=== PATIENT | male | born 1950 | race Caucasian/White ===

== ENCOUNTER 2020-10-28 09:50 | Inpatient (IN) | payer MEDICARE, MEDICAID, SELFPAY ==
[2020-10-28] VITALS (44 sets, daily range): BP systolic 88–195; BP diastolic 35–99; PULSE 72–169; RESP 12–42; TEMP 36.8; O2SAT 82–100; BMI 23.6
--- NOTE | 2020-10-28 10:09 | XRR_ITS ---
PROCEDURE INFORMATION: Exam: XR Chest, 1 View Exam date and time: 10/28/2020 10:38 AM Age: 70 years old Clinical indication: Cough and shortness of breath; Additional info: Cough/sob TECHNIQUE: Imaging protocol: XR of the chest Views: 1 view. COMPARISON: No relevant prior studies available. FINDINGS: Lungs: There is dense consolidation of the right upper lobe which is consistent with pneumonia. There is also infiltration extending into the right infrahilar region. The left lung is clear. Pleural space: Unremarkable. No pleural effusion. No pneumothorax. Heart/Mediastinum: Unremarkable. No cardiomegaly. Bones/joints: Unremarkable. XR/XR chest 1V portable [id number] IMPRESSION: Dense right upper lobe consolidation consistent with pneumonia. Follow-up chest radiographs are advised to make sure that this clears and that there is no other underlying pathology.
--- NOTE | 2020-10-28 10:11 | ECG_ITS ---
[facility] Test Date: 2020-10-28 Pat Name: Juan Hess Department: Room: Gender: Male Customer Strategy Manager: : 1950 Requested By: Sobeida Jensen Order Number: [id number] Fabiana MD: Nathanael Park M.D. Measurements Intervals [place] Rate: 148 P: NE: QRS: 55 QRSD: 89 T: 28 QT: 232 QTc: 365 Interpretive Statements ATRIAL FIBRILLATION WITH RAPID VENTRICULAR RESPONSE WITH ABERRANT CONDUCTION OR VENTRICULAR PREMATURE COMPLEXES POSSIBLE RIGHT VENTRICULAR CONDUCTION DELAY [RSR (QR) IN V1/V2] Compared to ECG 05/25/2017 08:16:09 Ventricular premature complex(es) now present Aberrant conduction of supraventricular beat(s) now present Sinus bradycardia no longer present Incomplete right bundle-branch block no longer present Electronically Signed On 10-28-2020 17:46:58 STOGIE PACKER by Nathanael Park M.D. [id number]
--- NOTE | 2020-10-28 10:12 | W.ED.SOB ---
Documented by User: ANNIKA Field 10/28/20 13:32 HPI - SOB/Dyspnea General: Chief Complaint: Shortness of Breath/Dyspnea Stated Complaint: SOB Time Seen by Provider: 10/28/20 09:52 Source: patient Mode of arrival: EMS Limitations: no limitations History of Present Illness: HPI Narrative: Patient is a nice 70-year-old gentleman who presents to ED today via EMS for complaint of shortness of breath. Patient tells me he began feeling ill approximately 12 days ago. He feels he most likely has COVID. He tells me today he feels like his shortness of breath is much worse than it had been previously. EMS reports when they arrived at patient's home he was satting in the 70s on room air. They administered a breathing treatment and placed patient on 6L O2. Patient tells me he normally does not wear oxygen. He has no previous cardiac or pulmonary history per patient report. EMS also noted atrial fibrillation with RVR on his EKG. Patient tells me he has no history of this. [facility] ED PFSH: Medical History (Updated 10/28/20 @ 12:03 by Sherman Foster MD) History of colon cancer Postherpetic neuralgia Surgical History History of colon resection Social History Smoking and tobacco status: never smoked Second hand smoke exposure: No Smoking risk assessment/counseling performed?: No Alcohol intake: never Desire information about alcohol rehabilitation?: No Counseling given: No Course Vital Signs: Vital signs: Vital Signs Temperature 98.3 F 10/28/20 09:50 Pulse Rate 140 H 10/28/20 13:00 Respiratory Rate 18 10/28/20 13:00 Blood Pressure 102/81 10/28/20 13:00 Pulse Oximetry 93 10/28/20 13:00 MDM - SOB/Dyspnea MDM Narrative: Medical decision making narrative: I spoke to Dr. Foster after evaluating patient and he will be assuming his care as he will most likely be admitted. Lab Data: Labs: Lab Results 10/28/20 10/28/20 10/28/20 Range/Units 08:52 08:52 08:52 WBC 26.7 H (4.0-10.0) 10^3/ uL RBC 4.87 (4.1-5.3) 10^6/u L Hgb 14.9 (11.7-16.6) g/dL Hct 43.9 (42.0-52.0) % MCV 90.1 (80-94) fL MCH 30.6 (28.0-34.0) pg MCHC 33.9 (30.0-36.0) g/dL RDW 13.1 (12.1-15.1) % Plt Count 342 (130-400) 10^3/c mm MPV 10.7 H (7.4-10.4) fL Neut % (Auto) 93.4 % Lymph % (Auto) 2.3 % Ector % (Auto) 2.1 % Eos % (Auto) 0.1 % Baso % (Auto) 0.1 % Neut # (Auto) 24.93 H (1.8-7.7) 10^3/u L Lymph # (Auto) 0.6 L (0.8-4.8) 10^3/u L Ector # (Auto) 0.6 (0.2-0.9) 10^3/u L Eos # (Auto) 0.0 (0.0-0.8) 10^3/u L Baso # (Auto) 0.0 (0.0-0.1) 10^3/u L Nucleated RBC % (a uto) 0 % Nucleated RBCs # 0.0 /100WBC Fibrinogen 1528 H (174-498) mg/dL D-Dimer 5.55 H (0-0.59) ug/mIFE U Specimen Type Sample Site ABG pH (7.35-7.45) ABG pCO2 (35-45) mmHg ABG pO2 (80.0-100.0) mmH g ABG HCO3 (22-26) mmol/L ABG Base Excess (-2.0-2.0) mmol/ L Aamir Test Hematocrit (42-52) % O2 Delivery Device O2 Liters/Min % FiO2 % Clay Hoister ID Sodium 131 L (136-145) mmol/L Potassium 3.9 (3.5-5.1) mmol/L Chloride 90 L (98-107) mmol/L Carbon Dioxide 22 (22-29) mmol/L Anion Gap 22.9 H (5-19) BUN 32 H (8-23) mg/dL Creatinine 1.9 H (0.7-1.2) mg/dL GFR Calculation 35.4 L (90-130) mL/min Glucose 118 H (65-115) mg/dL Calculated Osmolal ity 280 L (285-295) mOsm/k g Lactic Acid (0.5-2.2) mmol/L Calcium 7.5 L (8.5-10.5) mg/dL Total Bilirubin 1.5 H (0.15-1.2) mg/dL AST 89 H (0-40) U/L ALT 52 H (0-41) U/L Alkaline Phosphata se 133 H (40-130) IU/L Creatine Kinase 92 (39-308) U/L Troponin T Baselin e (0-15) ng/L Troponin T 120 Min lower elwha (0-15) ng/L Delta Troponin T (0-10) ABS# C-Reactive Protein 416.3 H (0.0-4.9) mg/L NT-Pro-B Natriuret Pep 7359 H (0-125) pg/mL Total Protein 6.3 L (6.6-8.7) g/dL Albumin 3.1 L (3.5-5.2) g/dL Globulin 3.2 (1.3-4.6) g/dL Procalcitonin 30.09 H (0-0.5) ng/mL Influenza Type A A g (Negative) Influenza Type B A g (Negative) SARS-CoV-2 Ag (Rap id) (Negative) 10/28/20 10/28/20 10/28/20 Range/Units 08:52 10:28 10:28 WBC (4.0-10.0) 10^3/ uL RBC (4.1-5.3) 10^6/u L Hgb (11.7-16.6) g/dL Hct (42.0-52.0) % MCV (80-94) fL MCH (28.0-34.0) pg MCHC (30.0-36.0) g/dL RDW (12.1-15.1) % Plt Count (130-400) 10^3/c mm MPV (7.4-10.4) fL Neut % (Auto) % Lymph % (Auto) % Ector % (Auto) % Eos % (Auto) % Baso % (Auto) % Neut # (Auto) (1.8-7.7) 10^3/u L Lymph # (Auto) (0.8-4.8) 10^3/u L Ector # (Auto) (0.2-0.9) 10^3/u L Eos # (Auto) (0.0-0.8) 10^3/u L Baso # (Auto) (0.0-0.1) 10^3/u L Nucleated RBC % (a uto) % Nucleated RBCs # /100WBC Fibrinogen (174-498) mg/dL D-Dimer (0-0.59) ug/mIFE U Specimen Type Sample Site ABG pH (7.35-7.45) ABG pCO2 (35-45) mmHg ABG pO2 (80.0-100.0) mmH g ABG HCO3 (22-26) mmol/L ABG Base Excess (-2.0-2.0) mmol/ L Aamir Test Hematocrit (42-52) % O2 Delivery Device O2 Liters/Min % FiO2 % Clay Hoister ID Sodium (136-145) mmol/L Potassium (3.5-5.1) mmol/L Chloride (98-107) mmol/L Carbon Dioxide (22-29) mmol/L Anion Gap (5-19) BUN (8-23) mg/dL Creatinine (0.7-1.2) mg/dL GFR Calculation (90-130) mL/min Glucose (65-115) mg/dL Calculated Osmolal ity (285-295) mOsm/k g Lactic Acid (0.5-2.2) mmol/L Calcium (8.5-10.5) mg/dL Total Bilirubin (0.15-1.2) mg/dL AST (0-40) U/L ALT (0-41) U/L Alkaline Phosphata se (40-130) IU/L Creatine Kinase (39-308) U/L Troponin T Baselin e 15 (0-15) ng/L Troponin T 120 Min lower [place] (0-15) ng/L Delta Troponin T (0-10) ABS# C-Reactive Protein (0.0-4.9) mg/L NT-Pro-B Natriuret Pep (0-125) pg/mL Total Protein (6.6-8.7) g/dL Albumin (3.5-5.2) g/dL Globulin (1.3-4.6) g/dL Procalcitonin (0-0.5) ng/mL Influenza Type A A g Negative (Negative) Influenza Type B A g Negative (Negative) SARS-CoV-2 Ag (Rap id) Negative (Negative) 10/28/20 10/28/20 10/28/20 Range/Units 11:05 11:05 13:19 WBC (4.0-10.0) 10^3/ uL RBC (4.1-5.3) 10^6/u L Hgb (11.7-16.6) g/dL Hct (42.0-52.0) % MCV (80-94) fL MCH (28.0-34.0) pg MCHC (30.0-36.0) g/dL RDW (12.1-15.1) % Plt Count (130-400) 10^3/c mm MPV (7.4-10.4) fL Neut % (Auto) % Lymph % (Auto) % Ector % (Auto) % Eos % (Auto) % Baso % (Auto) % Neut # (Auto) (1.8-7.7) 10^3/u L Lymph # (Auto) (0.8-4.8) 10^3/u L Ector # (Auto) (0.2-0.9) 10^3/u L Eos # (Auto) (0.0-0.8) 10^3/u L Baso # (Auto) (0.0-0.1) 10^3/u L Nucleated RBC % (a uto) % Nucleated RBCs # /100WBC Fibrinogen (174-498) mg/dL D-Dimer (0-0.59) ug/mIFE U Specimen Type Arterial Sample Site Radial, left ABG pH 7.50 H (7.35-7.45) ABG pCO2 26.0 L (35-45) mmHg ABG pO2 55.4 L (80.0-100.0) mmH g ABG HCO3 20.1 L (22-26) mmol/L ABG Base Excess -1.7 (-2.0-2.0) mmol/ L Aamir Test Pos Hematocrit 40.5 L (42-52) % O2 Delivery Device Nc O2 Liters/Min 2.0 % FiO2 28.0 % Clay Hoister ID Cak Sodium (136-145) mmol/L Potassium (3.5-5.1) mmol/L Chloride (98-107) mmol/L Carbon Dioxide (22-29) mmol/L Anion Gap (5-19) BUN (8-23) mg/dL Creatinine (0.7-1.2) mg/dL GFR Calculation (90-130) mL/min Glucose (65-115) mg/dL Calculated Osmolal ity (285-295) mOsm/k g Lactic Acid 2.4 H (0.5-2.2) mmol/L Calcium (8.5-10.5) mg/dL Total Bilirubin (0.15-1.2) mg/dL AST (0-40) U/L ALT (0-41) U/L Alkaline Phosphata se (40-130) IU/L Creatine Kinase (39-308) U/L Troponin T Baselin e (0-15) ng/L Troponin T 120 Min lower [place]wh[place] 13.29 (0-15) ng/L Delta Troponin T -1.71 L (0-10) ABS# C-Reactive Protein (0.0-4.9) mg/L NT-Pro-B Natriuret Pep (0-125) pg/mL Total Protein (6.6-8.7) g/dL Albumin (3.5-5.2) g/dL Globulin (1.3-4.6) g/dL Procalcitonin (0-0.5) ng/mL Influenza Type A A g (Negative) Influenza Type B A g (Negative) SARS-CoV-2 Ag (Rap id) (Negative) Discharge Plan Discharge Patient Disposition: Admitted As Inpatient Clinical Impression: Community acquired pneumonia, Atrial fibrillation with rapid ventricular response, Acute renal failure (ARF) Condition: Serious Coding Level of Care Code ED Automotive Engineering Technician for g Fwd Documented by User: Sherman Foster MD 10/28/20 13:44 HPI - SOB/Dyspnea General: Chief Complaint: Shortness of Breath/Dyspnea Stated Complaint: SOB Time Seen by Provider: 10/28/20 09:52 PFSH ED PFSH: Medical History (Updated 10/28/20 @ 12:03 by Sherman Foster MD) History of colon cancer Postherpetic neuralgia Surgical History History of colon resection Social History Smoking and tobacco status: never smoked Second hand smoke exposure: No Smoking risk assessment/counseling performed?: No Alcohol intake: never Desire information about alcohol rehabilitation?: No Counseling given: No Course Vital Signs: Vital signs: Vital Signs Temperature 98.3 F 10/28/20 09:50 Pulse Rate 140 H 10/28/20 13:00 Respiratory Rate 18 10/28/20 13:00 Blood Pressure 102/81 10/28/20 13:00 Pulse Oximetry 93 10/28/20 13:00 MDM - SOB/Dyspnea Lab Data: Labs: Lab Results 10/28/20 10/28/20 10/28/20 Range/Units 08:52 08:52 08:52 WBC 26.7 H (4.0-10.0) 10^3/ uL RBC 4.87 (4.1-5.3) 10^6/u L Hgb 14.9 (11.7-16.6) g/dL Hct 43.9 (42.0-52.0) % MCV 90.1 (80-94) fL MCH 30.6 (28.0-34.0) pg MCHC 33.9 (30.0-36.0) g/dL RDW 13.1 (12.1-15.1) % Plt Count 342 (130-400) 10^3/c mm MPV 10.7 H (7.4-10.4) fL Neut % (Auto) 93.4 % Lymph % (Auto) 2.3 % Ector % (Auto) 2.1 % Eos % (Auto) 0.1 % Baso % (Auto) 0.1 % Neut # (Auto) 24.93 H (1.8-7.7) 10^3/u L Lymph # (Auto) 0.6 L (0.8-4.8) 10^3/u L Ector # (Auto) 0.6 (0.2-0.9) 10^3/u L Eos # (Auto) 0.0 (0.0-0.8) 10^3/u L Baso # (Auto) 0.0 (0.0-0.1) 10^3/u L Nucleated RBC % (a uto) 0 % Nucleated RBCs # 0.0 /100WBC Fibrinogen 1528 H (174-498) mg/dL D-Dimer 5.55 H (0-0.59) ug/mIFE U Specimen Type Sample Site ABG pH (7.35-7.45) ABG pCO2 (35-45) mmHg ABG pO2 (80.0-100.0) mmH g ABG HCO3 (22-26) mmol/L ABG Base Excess (-2.0-2.0) mmol/ L Aamir Test Hematocrit (42-52) % O2 Delivery Device O2 Liters/Min % FiO2 % Clay Hoister ID Sodium 131 L (136-145) mmol/L Potassium 3.9 (3.5-5.1) mmol/L Chloride 90 L (98-107) mmol/L Carbon Dioxide 22 (22-29) mmol/L Anion Gap 22.9 H (5-19) BUN 32 H (8-23) mg/dL Creatinine 1.9 H (0.7-1.2) mg/dL GFR Calculation 35.4 L (90-130) mL/min Glucose 118 H (65-115) mg/dL Calculated Osmolal ity 280 L (285-295) mOsm/k g Lactic Acid (0.5-2.2) mmol/L Calcium 7.5 L (8.5-10.5) mg/dL Total Bilirubin 1.5 H (0.15-1.2) mg/dL AST 89 H (0-40) U/L ALT 52 H (0-41) U/L Alkaline Phosphata se 133 H (40-130) IU/L Creatine Kinase 92 (39-308) U/L Troponin T Baselin e (0-15) ng/L Troponin T 120 Min lower [place] (0-15) ng/L Delta Troponin T (0-10) ABS# C-Reactive Protein 416.3 H (0.0-4.9) mg/L NT-Pro-B Natriuret Pep 7359 H (0-125) pg/mL Total Protein 6.3 L (6.6-8.7) g/dL Albumin 3.1 L (3.5-5.2) g/dL Globulin 3.2 (1.3-4.6) g/dL Procalcitonin 30.09 H (0-0.5) ng/mL Influenza Type A A g (Negative) Influenza Type B A g (Negative) SARS-CoV-2 Ag (Rap id) (Negative) 10/28/20 10/28/20 10/28/20 Range/Units 08:52 10:28 10:28 WBC (4.0-10.0) 10^3/ uL RBC (4.1-5.3) 10^6/u L Hgb (11.7-16.6) g/dL Hct (42.0-52.0) % MCV (80-94) fL MCH (28.0-34.0) pg MCHC (30.0-36.0) g/dL RDW (12.1-15.1) % Plt Count (130-400) 10^3/c mm MPV (7.4-10.4) fL Neut % (Auto) % Lymph % (Auto) % Ector % (Auto) % Eos % (Auto) % Baso % (Auto) % Neut # (Auto) (1.8-7.7) 10^3/u L Lymph # (Auto) (0.8-4.8) 10^3/u L Ector # (Auto) (0.2-0.9) 10^3/u L Eos # (Auto) (0.0-0.8) 10^3/u L Baso # (Auto) (0.0-0.1) 10^3/u L Nucleated RBC % (a uto) % Nucleated RBCs # /100WBC Fibrinogen (174-498) mg/dL D-Dimer (0-0.59) ug/mIFE U Specimen Type Sample Site ABG pH (7.35-7.45) ABG pCO2 (35-45) mmHg ABG pO2 (80.0-100.0) mmH g ABG HCO3 (22-26) mmol/L ABG Base Excess (-2.0-2.0) mmol/ L Aamir Test Hematocrit (42-52) % O2 Delivery Device O2 Liters/Min % FiO2 % Clay Hoister ID Sodium (136-145) mmol/L Potassium (3.5-5.1) mmol/L Chloride (98-107) mmol/L Carbon Dioxide (22-29) mmol/L Anion Gap (5-19) BUN (8-23) mg/dL Creatinine (0.7-1.2) mg/dL GFR Calculation (90-130) mL/min Glucose (65-115) mg/dL Calculated Osmolal ity (285-295) mOsm/k g Lactic Acid (0.5-2.2) mmol/L Calcium (8.5-10.5) mg/dL Total Bilirubin (0.15-1.2) mg/dL AST (0-40) U/L ALT (0-41) U/L Alkaline Phosphata se (40-130) IU/L Creatine Kinase (39-308) U/L Troponin T Baselin e 15 (0-15) ng/L Troponin T 120 Min lower [place] (0-15) ng/L Delta Troponin T (0-10) ABS# C-Reactive Protein (0.0-4.9) mg/L NT-Pro-B Natriuret Pep (0-125) pg/mL Total Protein (6.6-8.7) g/dL Albumin (3.5-5.2) g/dL Globulin (1.3-4.6) g/dL Procalcitonin (0-0.5) ng/mL Influenza Type A A g Negative (Negative) Influenza Type B A g Negative (Negative) SARS-CoV-2 Ag (Rap id) Negative (Negative) 10/28/20 10/28/20 10/28/20 Range/Units 11:05 11:05 13:19 WBC (4.0-10.0) 10^3/ uL RBC (4.1-5.3) 10^6/u L Hgb (11.7-16.6) g/dL Hct (42.0-52.0) % MCV (80-94) fL MCH (28.0-34.0) pg MCHC (30.0-36.0) g/dL RDW (12.1-15.1) % Plt Count (130-400) 10^3/c mm MPV (7.4-10.4) fL Neut % (Auto) % Lymph % (Auto) % Ector % (Auto) % Eos % (Auto) % Baso % (Auto) % Neut # (Auto) (1.8-7.7) 10^3/u L Lymph # (Auto) (0.8-4.8) 10^3/u L Ector # (Auto) (0.2-0.9) 10^3/u L Eos # (Auto) (0.0-0.8) 10^3/u L Baso # (Auto) (0.0-0.1) 10^3/u L Nucleated RBC % (a uto) % Nucleated RBCs # /100WBC Fibrinogen (174-498) mg/dL D-Dimer (0-0.59) ug/mIFE U Specimen Type Arterial Sample Site Radial, left ABG pH 7.50 H (7.35-7.45) ABG pCO2 26.0 L (35-45) mmHg ABG pO2 55.4 L (80.0-100.0) mmH g ABG HCO3 20.1 L (22-26) mmol/L ABG Base Excess -1.7 (-2.0-2.0) mmol/ L Aamir Test Pos Hematocrit 40.5 L (42-52) % O2 Delivery Device Nc O2 Liters/Min 2.0 % FiO2 28.0 % Clay Hoister ID Cak Sodium (136-145) mmol/L Potassium (3.5-5.1) mmol/L Chloride (98-107) mmol/L Carbon Dioxide (22-29) mmol/L Anion Gap (5-19) BUN (8-23) mg/dL Creatinine (0.7-1.2) mg/dL GFR Calculation (90-130) mL/min Glucose (65-115) mg/dL Calculated Osmolal ity (285-295) mOsm/k g Lactic Acid 2.4 H (0.5-2.2) mmol/L Calcium (8.5-10.5) mg/dL Total Bilirubin (0.15-1.2) mg/dL AST (0-40) U/L ALT (0-41) U/L Alkaline Phosphata se (40-130) IU/L Creatine Kinase (39-308) U/L Troponin T Baselin e (0-15) ng/L Troponin T 120 Min lower [place] 13.29 (0-15) ng/L Delta Troponin T -1.71 L (0-10) ABS# C-Reactive Protein (0.0-4.9) mg/L NT-Pro-B Natriuret Pep (0-125) pg/mL Total Protein (6.6-8.7) g/dL Albumin (3.5-5.2) g/dL Globulin (1.3-4.6) g/dL Procalcitonin (0-0.5) ng/mL Influenza Type A A g (Negative) Influenza Type B A g (Negative) SARS-CoV-2 Ag (Rap id) (Negative) Discharge Plan Discharge Patient Disposition: Admitted As Inpatient Clinical Impression: Community acquired pneumonia, Atrial fibrillation with rapid ventricular response, Acute renal failure (ARF) Condition: Serious Coding Level of Care Code ED Automotive Engineering Technician for Codi Valente
[2020-10-28 10:29] LABS: Basophils % 0.1 %; Eosinophils % 0.1 %; Hematocrit 43.9 % (42.0-52.0); Hemoglobin 14.9 g/dL (11.7-16.6); Lymphocytes # 0.6 10^3/uL (0.8-4.8); Lymphocytes % 2.3 %; Mean Corpuscular HGB Conc 33.9 g/dL (30.0-36.0); Mean Corpuscular Hemoglobin 30.6 pg (28.0-34.0); Mean Corpuscular Volume 90.1 fL (80-94); Mean Platelet Volume 10.7 fL (7.4-10.4); Monocytes # 0.6 10^3/uL (0.2-0.9); Monocytes % 2.1 %; Neutrophils # 24.93 10^3/uL (1.8-7.7); Neutrophils % 93.4 %; Nucleated Red Blood Cells % 0 %; Platelet Count 342 10^3/cmm (130-400); Red Blood Count 4.87 10^6/uL (4.1-5.3); Red Cell Distribution Width 13.1 % (12.1-15.1); White Blood Count 26.7 10^3/uL (4.0-10.0)
[2020-10-28 10:40] LABS: Fibrinogen 1528 mg/dL (174-498)
[2020-10-28 10:41] LABS: Troponin(5th) Baseline 15 ng/L (0-15)
[2020-10-28 10:44] LABS: D Dimer 5.55 ug/mIFEU (0-0.59)
[2020-10-28] MEDS: sodium chloride 0.9% 1,000 ML 999 ML IV (10:47)
[2020-10-28 10:52] LABS: NT Pro B Type Natriuretic Pept 7359 pg/mL (0-125); Procalcitonin 30.09 ng/mL (0-0.5)
[2020-10-28 11:05] LABS: Alanine Aminotransferase 52 U/L (0-41); Albumin Level 3.1 g/dL (3.5-5.2); Alkaline Phosphatase 133 IU/L (40-130); Anion Gap 22.9 (5-19); Aspartate Amino Transferase 89 U/L (0-40); Blood Urea Nitrogen 32 mg/dL (8-23); Calcium 7.5 mg/dL (8.5-10.5); Carbon Dioxide 22 mmol/L (22-29); Chloride 90 mmol/L (98-107); Creatine Phosphokinase 92 U/L (39-308); Globulin 3.2 g/dL (1.3-4.6); Glomerular Filtration Rate 35.4 mL/min (90-130); Glucose 118 mg/dL (65-115); Osmolality Calculated 280 mOsm/kg (285-295); Potassium 3.9 mmol/L (3.5-5.1); Sodium 131 mmol/L (136-145); Total Bilirubin 1.5 mg/dL (0.15-1.2); Total Protein 6.3 g/dL (6.6-8.7)
[2020-10-28 11:19] LABS: C Reactive Protein 416.3 mg/L (0.0-4.9)
[2020-10-28] MEDS: levofloxacin-dextrose 5 % 750 MG/150 ML PREMIX 100 MG IV (11:50)
[2020-10-28 11:54] LABS: Lactic Sepsis W/Reflex 2.4 mmol/L (0.5-2.2)
[2020-10-28 11:55] LABS: Troponin 5 2HR 13.29 ng/L (0-15)
[2020-10-28 11:57] LABS: Influenza A by IFA Negative (Negative); Influenza B by IFA Negative (Negative); SARS Covid-2 Antigen Negative (Negative)
--- NOTE | 2020-10-28 11:57 | ED_ITS ---
HPI - SOB/Dyspnea General: Chief Complaint: Shortness of Breath/Dyspnea Stated Complaint: SOB Time Seen by Provider: 10/28/20 09:52 Source: patient Mode of arrival: EMS Limitations: no limitations History of Present Illness: HPI Narrative: Patient with shortness of breath and palpitations and intermittent chest pain x12 days. Associated symptoms: Reports chest pain, fever(s) and palpitations; Deny abdominal pain, nausea or vomiting Review of Systems Const: Reports: fever(s) ENMT: Reports: throat pain Card: Reports: chest pain, palpitations and irregular heart rhythm Resp: Reports: dyspnea and productive cough GI: Denies: abdominal pain, nausea, vomiting or diarrhea : Denies: flank pain Skin/Breast: Denies: rash PFSH ED PFSH: Medical History (Updated 10/28/20 @ 12:03 by Sherman Foster MD) History of colon cancer Postherpetic neuralgia Surgical History History of colon resection Social History Smoking and tobacco status: never smoked Second hand smoke exposure: No Smoking risk assessment/counseling performed?: No Alcohol intake: never Desire information about alcohol rehabilitation?: No Counseling given: No Physical Exam Const: COMMON NORMALS: patient oriented x3; apparent distress and negative for healthy appearing EXAM LIMITATIONS: no altered mental status GENERAL APPEARANCE: cooperative HENMT: COMMON NORMALS: normocephalic HEAD & SCALP: normal to inspection and normocephalic FACE & SINUS: normal facial exam Eye: COMMON NORMALS: Equal, round and reactive pupils present and EOMs intact bilaterally PUPIL: Yes Equal, round and reactive pupils present Neck/C-Spine: COMMON NORMALS: full ROM, no lymphadenopathy and no meningeal signs Chest: COMMONS NORMALS: normal inspection of the chest Resp: EFFORT & INSPECTION: Yes tachypneic, Yes labored and Yes uses accessory muscles AUSCULTATION: crackles Cardio: RATE: tachycardic RHYTHM: abnormal rhythm Neuro: COMMON NORMALS: patient oriented x3, CN's II-XII intact bilaterally, m oves all extremities, no focal motor deficits and no sensory deficits noted MENINGEAL SIGNS: Yes no meningeal signs Course Vital Signs: Vital signs: Vital Signs Temperature 98.3 F 10/28/20 09:50 Pulse Rate 136 H 10/28/20 11:00 Respiratory Rate 42 H 10/28/20 11:00 Blood Pressure 103/72 10/28/20 11:00 Pulse Oximetry 90 10/28/20 11:00 MDM - SOB/Dyspnea MDM Narrative: Medical decision making narrative: Patient has new onset A. fib with RVR with a ventricular rate of 140s. Started on Cardizem. EKG discussed with Dr. Park. Chest x-ray shows a right upper lobe infiltrate. Started on Levaquin. Seems to be more consistent with a bacterial pneumonia. We will also check Covid. Patient with acute renal insufficiency so unable to do CTA of the chest despite elevated D-dimer so we will start patient on heparin drip until able to rule out PE. Negative troponin. Discussed with who accepted patient Lab Data: Labs: Lab Results 10/28/20 10/28/20 10/28/20 Range/Units 08:52 08:52 08:52 WBC 26.7 H (4.0-10.0) 10^3/ uL RBC 4.87 (4.1-5.3) 10^6/u L Hgb 14.9 (11.7-16.6) g/dL Hct 43.9 (42.0-52.0) % MCV 90.1 (80-94) fL MCH 30.6 (28.0-34.0) pg MCHC 33.9 (30.0-36.0) g/dL RDW 13.1 (12.1-15.1) % Plt Count 342 (130-400) 10^3/c mm MPV 10.7 H (7.4-10.4) fL Neut % (Auto) 93.4 % Lymph % (Auto) 2.3 % [place] % (Auto) 2.1 % Eos % (Auto) 0.1 % Baso % (Auto) 0.1 % Neut # (Auto) 24.93 H (1.8-7.7) 10^3/u L Lymph # (Auto) 0.6 L (0.8-4.8) 10^3/u L [place] # (Auto) 0.6 (0.2-0.9) 10^3/u L Eos # (Auto) 0.0 (0.0-0.8) 10^3/u L Baso # (Auto) 0.0 (0.0-0.1) 10^3/u L Nucleated RBC % (a uto) 0 % Nucleated RBCs # 0.0 /100WBC Fibrinogen 1528 H (174-498) mg/dL D-Dimer 5.55 H (0-0.59) ug/mIFE U Sodium 131 L (136-145) mmol/L Potassium 3.9 (3.5-5.1) mmol/L Chloride 90 L (98-107) mmol/L Carbon Dioxide 22 (22-29) mmol/L Anion Gap 22.9 H (5-19) BUN 32 H (8-23) mg/dL Creatinine 1.9 H (0.7-1.2) mg/dL GFR Calculation 35.4 L (90-130) mL/min Glucose 118 H (65-115) mg/dL Calculated Osmolal ity 280 L (285-295) mOsm/k g Lactic Acid (0.5-2.2) mmol/L Calcium 7.5 L (8.5-10.5) mg/dL Total Bilirubin 1.5 H (0.15-1.2) mg/dL AST 89 H (0-40) U/L ALT 52 H (0-41) U/L Alkaline Phosphata se 133 H (40-130) IU/L Creatine Kinase 92 (39-308) U/L Troponin T Baselin e (0-15) ng/L Troponin T 120 Min [place] (0-15) ng/L Delta Troponin T (0-10) ABS# C-Reactive Protein 416.3 H (0.0-4.9) mg/L NT-Pro-B Natriuret Pep 7359 H (0-125) pg/mL Total Protein 6.3 L (6.6-8.7) g/dL Albumin 3.1 L (3.5-5.2) g/dL Globulin 3.2 (1.3-4.6) g/dL Procalcitonin 30.09 H (0-0.5) ng/mL Influenza Type A A g (Negative) Influenza Type B A g (Negative) SARS-CoV-2 Ag (Rap id) (Negative) 10/28/20 10/28/20 10/28/20 Range/Units 08:52 10:28 10:28 WBC (4.0-10.0) 10^3/ uL RBC (4.1-5.3) 10^6/u L Hgb (11.7-16.6) g/dL Hct (42.0-52.0) % MCV (80-94) fL MCH (28.0-34.0) pg MCHC (30.0-36.0) g/dL RDW (12.1-15.1) % Plt Count (130-400) 10^3/c mm MPV (7.4-10.4) fL Neut % (Auto) % Lymph % (Auto) % [place] % (Auto) % Eos % (Auto) % Baso % (Auto) % Neut # (Auto) (1.8-7.7) 10^3/u L Lymph # (Auto) (0.8-4.8) 10^3/u L [place] # (Auto) (0.2-0.9) 10^3/u L Eos # (Auto) (0.0-0.8) 10^3/u L Baso # (Auto) (0.0-0.1) 10^3/u L Nucleated RBC % (a uto) % Nucleated RBCs # /100WBC Fibrinogen (174-498) mg/dL D-Dimer (0-0.59) ug/mIFE U Sodium (136-145) mmol/L Potassium (3.5-5.1) mmol/L Chloride (98-107) mmol/L Carbon Dioxide (22-29) mmol/L Anion Gap (5-19) BUN (8-23) mg/dL Creatinine (0.7-1.2) mg/dL GFR Calculation (90-130) mL/min Glucose (65-115) mg/dL Calculated Osmolal ity (285-295) mOsm/k g Lactic Acid (0.5-2.2) mmol/L Calcium (8.5-10.5) mg/dL Total Bilirubin (0.15-1.2) mg/dL AST (0-40) U/L ALT (0-41) U/L Alkaline Phosphata se (40-130) IU/L Creatine Kinase (39-308) U/L Troponin T Baselin e 15 (0-15) ng/L Troponin T 120 Min [place] (0-15) ng/L Delta Troponin T (0-10) ABS# C-Reactive Protein (0.0-4.9) mg/L NT-Pro-B Natriuret Pep (0-125) pg/mL Total Protein (6.6-8.7) g/dL Albumin (3.5-5.2) g/dL Globulin (1.3-4.6) g/dL Procalcitonin (0-0.5) ng/mL Influenza Type A A g Negative (Negative) Influenza Type B A g Negative (Negative) SARS-CoV-2 Ag (Rap id) Negative (Negative) 10/28/20 10/28/20 Range/Units 11:05 11:05 WBC (4.0-10.0) 10^3/ uL RBC (4.1-5.3) 10^6/u L Hgb (11.7-16.6) g/dL Hct (42.0-52.0) % MCV (80-94) fL MCH (28.0-34.0) pg MCHC (30.0-36.0) g/dL RDW (12.1-15.1) % Plt Count (130-400) 10^3/c mm MPV (7.4-10.4) fL Neut % (Auto) % Lymph % (Auto) % [place] % (Auto) % Eos % (Auto) % Baso % (Auto) % Neut # (Auto) (1.8-7.7) 10^3/u L Lymph # (Auto) (0.8-4.8) 10^3/u L [place] # (Auto) (0.2-0.9) 10^3/u L Eos # (Auto) (0.0-0.8) 10^3/u L Baso # (Auto) (0.0-0.1) 10^3/u L Nucleated RBC % (a uto) % Nucleated RBCs # /100WBC Fibrinogen (174-498) mg/dL D-Dimer (0-0.59) ug/mIFE U Sodium (136-145) mmol/L Potassium (3.5-5.1) mmol/L Chloride (98-107) mmol/L Carbon Dioxide (22-29) mmol/L Anion Gap (5-19) BUN (8-23) mg/dL Creatinine (0.7-1.2) mg/dL GFR Calculation (90-130) mL/min Glucose (65-115) mg/dL Calculated Osmolal ity (285-295) mOsm/k g Lactic Acid 2.4 H (0.5-2.2) mmol/L Calcium (8.5-10.5) mg/dL Total Bilirubin (0.15-1.2) mg/dL AST (0-40) U/L ALT (0-41) U/L Alkaline Phosphata se (40-130) IU/L Creatine Kinase (39-308) U/L Troponin T Baselin e (0-15) ng/L Troponin T 120 Min [place] 13.29 (0-15) ng/L Delta Troponin T -1.71 L (0-10) ABS# C-Reactive Protein (0.0-4.9) mg/L NT-Pro-B Natriuret Pep (0-125) pg/mL Total Protein (6.6-8.7) g/dL Albumin (3.5-5.2) g/dL Globulin (1.3-4.6) g/dL Procalcitonin (0-0.5) ng/mL Influenza Type A A g (Negative) Influenza Type B A g (Negative) SARS-CoV-2 Ag (Rap id) (Negative) Discharge Plan Discharge Patient Disposition: Admitted As Inpatient Clinical Impression: Community acquired pneumonia, Atrial fibrillation with rapid ventricular response, Acute renal failure (ARF) Condition: Serious Coding Level of Care Code ED Director Of Medical Staff Services for [facility] Fwd Exam Comprehensive
[2020-10-28 11:59] LABS: Troponin 5 2HR Delta -1.71 ABS# (0-10)
[2020-10-28] MEDS: heparin drip 25,000 UNIT/500 ML PREMIX 17.4 UNIT IV (12:45)
[2020-10-28 13:02] LABS: Reflex Lactate Order REFLEX LACTIC ORDERD
--- NOTE | 2020-10-28 13:02 | P.HP_ITS ---
Providers/Chief Complaint Primary Care Provider: ALEJANDRINA Lopez Chief Complaint: SOB History of Present Illness Juan Hess is a 70 year old male with no significant PMH came in with C/O worsening fatigue, malaise,weakness,sob with cough,subjective fever, started approximately 2 weeks ago and since then has progressively worsened.He is also giving h/o of dizziness as well as recurrent fall. Upon arrival in the ER he was worked up for above mentioned complain. Pertinent imaging studies and labs : X ray chest : Dense right upper lobe consolidation consistent with pneumonia. C.T Chest without Contrast : There is dense consolidation of the right upper lobe. The bronchi and bronchioles are patent. These findings are consistent with a right upper lobe pneumonia. Left lung is clear. EKG : ATRIAL FIBRILLATION WITH RAPID VENTRICULAR RESPONSE WITH ABERRANT CONDUCTION. Possible Brugada.Will repeat EKG Once H.R is better controlled. Labs : WBC :26T , H/H : 14.9/43, BUN/SCR: 32/1.9 Troponin: Baseline : 15, 2H Tro: 13, Delta 2h: -1.71 , 6h : 10.8 Delta 6h : - 4.19 D-Dimer : 5.55 Lactic Acid : 2.4 , Procal : 30.9 , Pro Bnp: 7359, ABG: Ph: 7.50 ,PCO2: 26, PO2: 55, FIO2: 28 % ECA Medications : Started on Cardizem Drip as well as Heparin drip.Received 1 dose of levofloxacin ; Review of Systems Card: Denies: palpitations GI: Denies: abdominal pain, nausea, vomiting, diarrhea or constipation : Denies: flank pain or difficulty urinating Musc: Denies: back pain, extremity pain or extremity swelling Medications/Allergies Home Medications Medication Instructions Recorded Confirmed Last Taken Type multivitamin 1 tab PO DAILY PRN 10/28/20 10/28/20 Unknown History Allergies Allergy/AdvReac Type Severity Reaction Status Date / Time No Known Allergies Allergy Verified 10/28/20 11:59 PFSH Acute PFSH: Medical History (Updated 10/28/20 @ 23:03 by Ti Burch MD) History of colon cancer Postherpetic neuralgia Surgical History History of colon resection Social History Smoking and tobacco status: never smoked Second hand smoke exposure: No Smoking risk assessment/counseling performed?: No Alcohol intake: never Desire information about alcohol rehabilitation?: No Counseling given: No Vitals/I&O/Wt Last Vital Signs Temp 98.3 F 10/28/20 09:50 Pulse 140 H 10/28/20 13:00 Resp 18 10/28/20 13:00 BP 102/81 10/28/20 13:00 Pulse Ox 93 10/28/20 13:00 Weight last 48 hrs Weight 72.575 kg Physical Exam Const: COMMON NORMALS: patient oriented x3 HENMT: COMMON NORMALS: normocephalic and atraumatic HEAD & SCALP: normocephalic and atraumatic Chest: COMMONS NORMALS: normal inspection of the chest and normal palpation of entire chest wall CHEST: Yes Symmetrical chest wall rise Resp: EFFORT & INSPECTION: Yes symmetric chest movement OTHER: B/L Basal Crackles Present,no wheezing , no ronchii Cardio: COMMON NORMALS: No gallops present (Cardio) and Peripheral pulses 2+ throughout PERIPHERAL PULSES: Peripheral pulses 2+ throughout OTHER: S1, S2 Of variable intensity, Irrregulalrly , irregular rhthym GI: COMMON NORMALS: Normal to inspection, nondistended, normoactive bowel sounds present, Soft to palpation, non-tender, No hepatosplenomegaly present and no masses AUSCULTATION: Yes normoactive bowel sounds PALPATION: Yes Soft to palpation and Yes No hepatosplenomegaly present RECTAL EXAM: Yes deferred Extremity: COMMON NORMALS: no clubbing, cyanosis or edema and no pedal edema Neuro: COMMON NORMALS: patient oriented x3 Data : 10/28/20 08:52 10/28/20 08:52 Micro: Microbiology 10/28/20 11:05 Blood Culture - Preliminary Blood SPECIMEN COLLECTED 10/28/20 11:05 Blood Culture - Preliminary Blood SPECIMEN COLLECTED A&P Assessment and plan (1) Respiratory failure with hypoxia: Ac Hypoxic R/F 2/2 PNA /R/O P.E X ray chest : Dense right upper lobe consolidation consistent with pneumonia. C.T Chest without Contrast : There is dense consolidation of the right upper lobe. The bronchi and bronchioles are patent. These findings are consistent with a right upper lobe pneumonia. Left lung is clear. EKG : ATRIAL FIBRILLATION WITH RAPID VENTRICULAR RESPONSE WITH ABERRANT CONDUCTION. Possible Brugada.Will repeat EKG Once H.R is better controlled. Labs : WBC :26T , H/H : 14.9/43, BUN/SCR: 32/1.9 Troponin: Baseline : 15, 2H Tro: 13, Delta 2h: -1.71 , 6h : 10.8 Delta 6h : - 4.19 D-Dimer : 5.55 Lactic Acid : 2.4 , Procal : 30.9 , Pro Bnp: 7359, ABG: Ph: 7.50 ,PCO2: 26, PO2: 55, FIO2: 28 % Plan : Vancomycin /Zosyn/Azithro Urine Legionella antigen Follow [place] cultures COVID Rapid PCR Eliquis 5 mg q12 h daily Status: Acute (2) Sepsis: Sepsis 2/2 PNA Plan as #1 Status: Acute (3) Atrial fibrillation with rapid ventricular response: New onset A.fib with RVR Currently On Cardizem Drip. Will initiate PO agents accordingly. 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
--- NOTE | 2020-10-28 13:02 | CTR_ITS ---
PROCEDURE INFORMATION: Exam: CT Chest Without Contrast; Diagnostic Exam date and time: 10/28/2020 1:10 PM Age: 70 years old Clinical indication: Cough and shortness of breath; Additional info: SOB TECHNIQUE: Imaging protocol: Diagnostic computed tomography of the chest without contrast. Radiation optimization: All CT scans at this facility use at least one of these dose optimization techniques: automated exposure control; mA and/or kV adjustment per patient size (includes targeted exams where dose is matched to clinical indication); or iterative reconstruction. COMPARISON: CR (CHEST, ) 10/28/2020 10:38 AM RADIATION DOSE METRICS: Total DLP (mGy-cm): 851.44 FINDINGS: Lungs: There is dense consolidation of the right upper lobe. The bronchi and bronchioles are patent. These findings are consistent with a right upper lobe pneumonia. Left lung is clear. There is mild atelectasis in the right lower lobe. No significant pleural effusion is seen. Pleural space: See Lungs finding. Heart: Unremarkable. No cardiomegaly. No pericardial effusion. Mediastinal space: Small sliding hiatal hernia. Aorta: Unremarkable. No aortic aneurysm. Lymph nodes: Benign calcified right pulmonary hilar and mediastinal lymph nodes. Bones/joints: Degenerative disease in the spine with sclerosis and osteophyte formation. Soft tissues: Unremarkable. CT/CT chest con [id number] IMPRESSION: Findings are consistent with a dense right upper lobe pneumonia. Follow-up chest radiographs are advised to follow the clearing of the pneumonia. Radiation Dose CTDIVOL = (mGy): DLP = 851.44 (mGy-cm)
[2020-10-28] MEDS: sodium chloride 0.9% 1,000 ML 75 ML IV (13:28)
[2020-10-28 13:30] LABS: Arterial Blood Gas Hematocrit 40.5 % (42-52); Base Excess ABG -1.7 mmol/L (-2.0-2.0); Blood Gas Allen Test Pos; Blood Gas Operator Identificat CAK; Blood Gas Sample Site Radial, left; Blood Gas Sample Type Arterial; HCO3 ABG 20.1 mmol/L (22-26); Oxygen Device NC; PO2 ABG 55.4 mmHg (80.0-100.0)
[2020-10-28 15:12] LABS: Lactic Acid level (Lactate) 2.2 mmol/L (0.5-2.2)
[2020-10-28 15:17] LABS: Troponin 5 6HR 10.81 ng/L (0-15)
[2020-10-28 15:25] LABS: Troponin 5 6HR Delta -4.19 ng/L (0-12)
--- NOTE | 2020-10-28 16:11 | ECG_ITS ---
[facility] Test Date: 2020-10-28 Pat Name: Juan Hess Department: Room: Gender: Male Director Sterile Processing: : 1950 Requested By: Sobeida Jensen Order Number: [id number] Fabiana MD: Nathanael Park M.D. Measurements Intervals [place] Rate: 136 P: [place]: QRS: 41 QRSD: 109 T: 32 QT: 319 QTc: 480 Interpretive Statements ATRIAL FIBRILLATION WITH RAPID VENTRICULAR RESPONSE WITH ABERRANT CONDUCTION OR VENTRICULAR PREMATURE COMPLEXES INCOMPLETE RIGHT BUNDLE BRANCH BLOCK [90+ ms QRS DURATION, TERMINAL R IN V1/V2, 40+ ms S IN I/aVL/V4/V5/V6] Compared to ECG 10/28/2020 10:32:09 Incomplete right bundle-branch block now present Electronically Signed On 10-28-2020 17:56:41 [employer] by Nathanael Park M.D. [email or web address] memorial [email or web address] Solutions [id number]
[2020-10-28] MEDS: piperacillin-tazobactam 3.375 GM in sodium chloride 0.9% (plus) 50 ML IV (18:13)
[2020-10-28] MEDS: guaiFENesin-dextromethorphan UDC 10 mL PO (18:13)
[2020-10-28] MEDS: famotidine 20 mg Tablet PO (18:13)
[2020-10-28] MEDS: vancomycin 1,250 MG/250 ML PIGGYBACK 250 MG IV (20:27)
[2020-10-28 21:21] LABS: Partial Thromboplastin Time 54.1 SECONDS (23.9-36.7)
[2020-10-28 22:11] LABS: Urine Color Yellow (Yellow); pH Urine 5 (5-7)
[2020-10-28 22:12] LABS: Add Urine Microscopic? YES; Bilirubin Urine 1+ (Negative); Blood Urine 2+ (Negative); Glucose Urine UA Norm (Normal); Ketones Urine Negative (Negative); Leukocyte Esterase Urine Negative (Negative); Nitrate Urine Negative (Negative); Protein Urine 1+ (Negative); Specific Gravity, Urine 1.015 (1.005-1.030); Urobilinogen Urine 4 mg/dL (Negative)
[2020-10-28 22:15] LABS: Amorphous Sediment Urine 2+ /hpf; RBC Urine 0-4 /hpf (0-2); Renal Epithelial Cells Urine 0 /hpf; Squamous Epithelial Cell Urine 0-4 /hpf (0-5)
[2020-10-28 22:16] LABS: Add Urine Culture? Yes; Bacteria Urine 2+ /hpf
[2020-10-28] MEDS: apixaban 5 mg Tablet PO (22:35)
[2020-10-28] MEDS: FUROsemide 10 mg/mL SDV 4mL 40 MG IVP (22:36)
[2020-10-29] VITALS (90 sets, daily range): BP systolic 74–134; BP diastolic 56–86; PULSE 90–129; RESP 12–44; TEMP 36.6–37.2; O2SAT 80–100; BMI 23.6
[2020-10-29] MEDS: guaiFENesin-dextromethorphan UDC 10 mL PO ×4 (00:30→18:03)
[2020-10-29] MEDS: piperacillin-tazobactam 3.375 GM in sodium chloride 0.9% (plus) 50 ML IV ×3 (03:00→18:04)
--- NOTE | 2020-10-29 04:57 | PC.NURSE ---
No hoses available for SCDs
[2020-10-29 05:32] LABS: Basophils # 0.2 10^3/uL (0.0-0.1); Basophils % 0.5 %; Hematocrit 38.2 % (42.0-52.0); Lymphocytes # 0.5 10^3/uL (0.8-4.8); Lymphocytes % 1.2 %; Mean Corpuscular Hemoglobin 30.5 pg (28.0-34.0); Mean Corpuscular Volume 89.7 fL (80-94); Monocytes # 0.6 10^3/uL (0.2-0.9); Monocytes % 1.4 %; Neutrophils # 36.77 10^3/uL (1.8-7.7); Neutrophils % 94.9 %; Nucleated Red Blood Cells % 0 %; Platelet Count 309 10^3/cmm (130-400); Red Blood Count 4.26 10^6/uL (4.1-5.3); Red Cell Distribution Width 13.3 % (12.1-15.1)
[2020-10-29 06:01] LABS: Alanine Aminotransferase 33 U/L (0-41); Alkaline Phosphatase 93 IU/L (40-130); Aspartate Amino Transferase 46 U/L (0-40); Blood Urea Nitrogen 42 mg/dL (8-23); Calcium 7.2 mg/dL (8.5-10.5); Carbon Dioxide 16 mmol/L (22-29); Chloride 98 mmol/L (98-107); Cholesterol 84 mg/dL (0-200); Globulin 4.1 g/dL (1.3-4.6); Glomerular Filtration Rate 40.3 mL/min (90-130); Glucose 139 mg/dL (65-115); HDL Cholesterol 15 mg/dL (60-100); LDL Cholesterol Calculated 38 mg/dL (50-129); LDL HDL Ratio 2.53 RATIO (0.00-3.22); Magnesium 2.7 mg/dL (1.7-2.3); Osmolality Calculated 283 mOsm/kg (285-295); Sodium 130 mmol/L (136-145); Thyroid Stimulating Hormone 1.05 uIU/mL (0.27-4.20); Total Bilirubin 0.9 mg/dL (0.15-1.2); Total Protein 6.1 g/dL (6.6-8.7); Triglycerides 153 mg/dL (0-150)
[2020-10-29 06:02] LABS: Partial Thromboplastin Time 37.9 SECONDS (23.9-36.7)
[2020-10-29 06:04] LABS: Anion Gap 19.5 (5-19); Potassium 3.5 mmol/L (3.5-5.1)
[2020-10-29 06:39] LABS: Slide Review Slide Review Perform; White Blood Count 38.7 10^3/uL (4.0-10.0)
[2020-10-29] MEDS: azithromycin 500 MG in sodium chloride 0.9% 250 ML 250 MG IV (07:52)
--- NOTE | 2020-10-29 08:24 | P.PN_ITS ---
Subjective Subjective: Interval history: Chart reviewed, on 4 L NC, remains on Cardizem drip. COVID-19 PCR test negative. Has had 2400 mL urine output so far, negative fluid balance of 2 L. Noted significant leukocytosis today (26.7->38.7), improved creatinine. Resting quietly in bed, ill-appearing, weak. Medications: Reviewed: Yes Medication Review Details: Active Medications Generic Name Dose Route Start Last Admin Trade Name Freq PRN Reason Stop Dose Admin Acetaminophen 650 mg 10/28/20 17:45 Acetaminophen 32 5 Mg Tablet PO Q6H PRN Mild/Mod Pain Or Temp >/= 101 Hydrocodone Bitart /Acetaminophen 1 tab 10/28/20 17:45 Hydrocodone-Acet aminophen 5-325 Mg Tablet PO Q4H PRN MODERATE TO SEVER E PAIN Albuterol/Ipratrop ium 3 ml 10/28/20 17:45 Ipratropium-Albu terol 3 Ml Neb INHALATION Q6H.RESPIRATORY P RN SHORTNESS OF VIKAS TH Apixaban 5 mg 10/28/20 22:30 10/28/20 22:35 Apixaban 5 Mg Ta blet PO 5 mg BID SAUMYA Administration Famotidine 20 mg 10/28/20 18:00 10/28/20 18:13 Famotidine 20 Mg Tablet PO 20 mg BID SAUMYA Administration Furosemide 40 mg 10/29/20 07:00 Furosemide 10 Mg /Ml Sdv 4ml IVP Q12H SAUMYA Guaifenesin/Dextro methorphan 10 ml 10/28/20 18:30 10/29/20 06:21 Guaifenesin-Dext romethorphan Udc 1 0 Ml PO 10 ml Q6H SAUMYA Administration Diltiazem HCl 125 mg/ Sodium 125 mls @ 10 mls/ hr 10/28/20 10:45 10/29/20 03:55 Chloride IV 7.5 mg/hr .[id number] SAUMYA 7.5 mls/hr Infusion 10 MG/HR Azithromycin 500 m g/ Sodium 250 mls @ 250 mls /hr 10/28/20 17:45 10/29/20 07:52 Chloride IV 250 mls/hr Q24H SAUMYA Administration Protocol Piperacillin Sod/T azobactam 50 mls @ 12.5 mls /hr 10/28/20 18:30 10/29/20 07:03 Sod 3.375 gm/ So dium Chloride IV Infused Q8H SAUMYA Infusion Protocol Vancomycin/PEG/NAD A/Lysine/Water 1,250 mg in 250 m ls @ 250 mls/hr 10/28/20 18:30 10/28/20 20:27 Vancocin IV 250 mls/hr Q24H SAUMYA Administration Multivitamins Ther apeutic 1 tab 10/28/20 17:45 Multivitamin The rapeutic Tablet PO DAILY PRN unknown Naloxone HCl 0.1 mg 10/28/20 17:45 Naloxone 0.4 Mg/ Ml Sdv IVP Q2M PRN OPIATERV Ondansetron HCl 4 mg 10/28/20 17:45 Ondansetron 2 Mg /Ml Sdv 2 Ml IVP Q8H PRN vomiting, or N/V if npo No Known Allergies Allergy (Verified 10/28/20 11:59) Vitals/I&O/Wt Last Vital Signs Temp 97.8 F 10/29/20 02:05 Pulse 106 H 10/29/20 08:00 Resp 34 H 10/29/20 06:23 BP 103/74 10/29/20 06:23 Pulse Ox 90 10/29/20 06:23 10/28/20 10/29/20 10/29/20 22:59 06:59 14:59 Intake Total 293.801 / 293.801 60.833 / 354.634 50 / 50 Output Total 900 / 900 1500 / 2400 Balance -606.199 / -606.199 -1439.167 / -2045.366 50 / 50 Weight last 48 hrs Weight 72.575 kg Weight 72.575 kg Physical Exam Const: COMMON NORMALS: no acute distress, patient oriented x3 and alert GENERAL APPEARANCE: cooperative, comfortable, ill appearing and frail appearing ORIENTATION/CONSCIOUSNESS: Yes awake OTHER: -appears quite fatigued HENMT: COMMON NORMALS: normocephalic, atraumatic, hearing grossly normal bilaterally and moist oral mucous membranes HEAD & SCALP: normocephalic and atraumatic Eye: COMMON NORMALS: Equal, round and reactive pupils present, EOMs intact bilaterally and conjunctivae normal CONJUNCTIVA: Yes conjunctivae normal PUPIL: Yes Equal, round and reactive pupils present Neck/C-Spine: COMMON NORMALS: full ROM GENERAL: Yes normal visual i nspection and Yes trachea midline Resp: COMMON NORMALS: normal respiratory effort, No retractions and No use of accessory muscles EFFORT & INSPECTION: Yes able to speak in complete sentences, Yes symmetric chest movement and No tachypneic AUSCULTATION: rhonchi right upper and diminished lung sounds OTHER: -on 4 L NC Cardio: COMMON NORMALS: S1 normal heart sound present, S2 normal heart sound present and No murmurs present (Cardio) RATE: tachycardic RHYTHM: abnormal rhythm irregularly irregular HEART SOUNDS: S1 normal heart sound present and S2 normal heart sound present GI: COMMON NORMALS: Normal to inspection, nondistended, normoactive bowel sounds present, Soft to palpation and non-tender INSPECTION: Yes central obesity PALPATION: Yes Soft to palpation : BLADDER/KIDNEY EXAM: Yes catheter in place Catheter type (Male): urethral Extremity: COMMON NORMALS: normal to inspection, full ROM and no clubbing, cyanosis or edema; negative for no pedal edema Neuro: COMMON NORMALS: patient oriented x3, moves all extremities, no focal motor deficits and no sensory deficits noted SENSORIUM/ORIENTATION: Yes alert OTHER: -generally quite weak Psych: COMMON NORMALS: mental status grossly normal, Normal thought process present, cooperative, normal affect and speech normal SPEECH: Yes normal speech THOUGHT PROCESS: Normal thought process present Skin: COMMON NORMALS: no rashes or lesions noted, no jaundice, no petechiae and no mottling GENERAL SKIN EXAM: no rashes or lesions noted Urinary Catheter Management^: Laboy: Cath Placed During This Visit: yes Reason for Continuing Indwelling Catheter: Accurate Measurement of Urinary Output in Critically Ill Patients Urinary Catheter Date of Insertion: 10/28/20 Urinary Catheter Time of Insertion: 22:59 Data : 10/29/20 05:00 10/29/20 05:00 Micro: Microbiology 10/28/20 23:24 Legionella Urinary Antigen - Final Urine,Voided 10/28/20 11:05 Blood Culture - Preliminary Blood SPECIMEN COLLECTED 10/28/20 11:05 Blood Culture - Preliminary Blood SPECIMEN COLLECTED A&P Assessment and plan (1) Respiratory failure with hypoxia: -With noted evidence of right upper lobe pneumonia on chest x-ray and CT chest -COVID-19 rapid testing negative, PCR negative; d/c isolation precautions -Continue broad-spectrum IV antibiotic coverage with vancomycin, Zosyn, azithromycin as quite ill-appearing -Noted significant leukocytosis with neutrophilic predominance, continue to trend WBC -Afebrile, normotensive, on 4 L nasal cannula, tachypnea. Continue to monitor vital signs -Continue to monitor respiratory status -blood cx: prelim negative -Legionella negative Status: Acute Qualifiers: Chronicity: acute Qualified Code(s): J96.01 - Acute respiratory failure with hypoxia (2) Heart failure: -noted elevated BNP -on IV lasix -continue to monitor Is & Os, daily weights, has Laboy catheter in place -Echo: EF=65%, no RWMA, G2DD, mild MR, mild-moderate TR Status: Acute Qualifiers: Heart failure chronicity: acute Heart failure type: diastolic Qualified Code(s): I50.31 - Acute diastolic (congestive) heart failure (3) Sepsis: -as evidenced by lactic acidosis, leukocytosis, tachypnea, tachycardia, hypoxia -secondary to infection as noted above -lactic acidosis resolved Status: Acute Qualifiers: Acute respiratory failure type: with hypoxia Sepsis acute organ dysfunction status: with acute organ dysfunction Sepsis type: sepsis due to u nspecified organism Severe sepsis acute organ dysfunction type: acute resp iratory failure Severe sepsis shock status: without septic shock Qualified Code(s): A41.9 - Sepsis, unspecified organism; R65.20 - Severe sepsis without septic shock; J96.01 - Acute respiratory failure with hypoxia (4) Acute kidney injury superimposed on CKD: -DYLAN on CKD stage 2 -baseline Cr around 0.8-0.9 -continue to monitor renal function, avoid nephrotoxins Status: Acute (5) Atrial fibrillation with rapid ventricular response: -on Cardizem drip, titrate as tolerated -on Eliquis -appears to be new onset, likely triggered by infection, CHF exacerbation -Echo as noted above Status: Acute Additional A&P Information -regular diet as tolerated -GI ppx with famotidine -DVT ppx not needed as on Eliquis -Dispo: home -Code status: FULL code -continue ICU care given sepsis, pneumonia, atrial fibrillation Attestations Medical Necessity Statement*: Patient requires hospitalization for continued IV diuresis, IV antibiotics secondary to CHF exacerbation and pneumonia respectively. Time Spent in Patient Care: 16 - 35 minutes (>than 50% of time spent in counselling and/or direct pt care on unit) . Critical Care Time: The high probability of a clinically significant, sudden or life threatening deterioration of the patient's [cardiovascular, respiratory] system(s) required my full and direct attention, intervention and personal management. The critical care time is as shown. This time is in addition to time spent performing any reported procedures but includes the following: [x] Data and vital sign review and interpretation [x] Patient assessment, examination and intervention [x] Documentation [x] Medication orders and management Critical Care Time (min): 20 Coding Level of Care Code Acute Manager Spanish for [facility] Fwd Exam Comprehensive Diagnoses Respiratory failure with hypoxia J96.01 Chronicity: acute Heart failure I50.31 Heart failure chronicity: acute Heart failure type: diastolic Sepsis A41.9; R65.20; J96.01 Acute respiratory failure type: with hypoxia Sepsis acute organ dysfunction status: with acute organ dysfunction Sepsis type: sepsis due to unspecified organism Severe sepsis acute organ dysfunction type: acute respiratory failure Severe sepsis shock status: without septic shock Acute kidney injury superimposed on CKD N17.9; N18.9 Atrial fibrillation with rapid ventricular response I48.91
--- NOTE | 2020-10-29 09:26 | PC.CHAP ---
Pastoral Care Encounter/Spiritual Assessment Type of Contact [] Declined manager of applications development visit [] Patient/Family/Request visit [] Outpatient visit [] Follow-up visit [] Physician referral [] Code/Alert [] Routine visit [] Staff referral [] Actively dying [] Patient sleeping [] Family support [] [] Out of room [] Palliative care [] [] Receiving care in room [] Pre-surgical visit [] Trauma [] Long length of stay [x] ICU visit [] Other: Relational/Emotional Strength [] Patient feels connected with others/family/visitors/staff [] Distress [] Loneliness/isolation [] Abandonment Spirituality of Patient [] Person of Yahaira [] Attends Muslim of their Yahaira [] Believes in Prayer [] Reads Bible or Sabianism materials [] There are Spiritual issues to be addressed 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 Interventions [x] Prayer [] Active listening [] Non-anxious presence [] Spiritual/emotional support [] Crisis/trauma care [] Spiritual counseling [] Bereavement support [] Provided bereavement packet [] Provided Bible/devotional materials [] Provided toy/stuffed animal, coloring book to patient or family member [] Provided Communion [] Anointing/[place] [] Salvation [x Completed spiritual assessment [] Other: Impact on Illness or Injury [] Angry [] Fearful [] Anxious [] Often cries [] Exhaustion [] Unable to work [] Unable to attend yazdanism [] Unable to walk/stand [] Unable to read [] Unable to drive [] Unable to eat/drink [] Unable to sleep [] Unable to be with family [] Patient intubated [] Other: Summary Time spent with patient
[2020-10-29] MEDS: famotidine 20 mg Tablet PO ×2 (10:15→18:03)
[2020-10-29] MEDS: dilTIAZem 30 mg Tablet PO ×3 (10:15→21:01)
[2020-10-29] MEDS: apixaban 5 mg Tablet PO ×2 (10:16→18:04)
[2020-10-29] MEDS: FUROsemide 10 mg/mL SDV 4mL 40 MG IVP ×2 (10:16→21:01)
[2020-10-29 15:41] LABS: Coronavirus Test Green County Not Detected
--- NOTE | 2020-10-29 17:35 | PC.NURSE ---
Grand daughter, Karishma,
--- NOTE | 2020-10-29 17:45 | USCV_ITS ---
Juan Hess Age: 70 Gender: M : 1950 Exam Date: 10/29/2020 06:09 Ordering Phys: Ti Burch MD Technologist: Star Dawn Exam Location: [facility] [place] Indication: SOB BP: 108 / 68 HR: 103 Rhythm: Sinus Technical Quality: Fair MEASUREMENTS (Male / Female) Normal Values 2D ECHO LV Diastolic Diameter PLAX 4.5 cm 4.2 - 5.9 / 3.9 - 5.3 cm LV Systolic Diameter PLAX 2.5 cm IVS Diastolic Thickness 0.9 cm 0.6 - 1.0 / 0.6 - 0.9 cm IVS Systolic Thickness 1.3 cm LVPW Diastolic Thickness 0.9 cm 0.6 - 1.0 / 0.6 - 0.9 cm LVPW Systolic Thickness 1.4 cm LVOT Diameter 2.1 cm LV Ejection Fraction 2D Teich 72.2 % LV Ejection Fraction MOD 2C 60.6 % LV Ejection Fraction 2C AL 60.3 % LA Diameter 3.9 cm LA Width 4.2 cm LA Height 4.7 cm RA Width 4.2 cm RA Height 4.1 cm Aorta at Sinotubular Diameter 2.5 cm M-MODE LV Diastolic Diameter MM 5.3 cm 4.2 - 5.9 / 3.9 - 5.3 cm LV Systolic Diameter MM 3.7 cm LV Ejection Fraction MM Teich 56.7 % IVS Diastolic Thickness MM 0.8 cm 0.6 - 1.0 / 0.6 - 0.9 cm IVS Systolic Thickness MM 1.2 cm LVPW Diastolic Thickness MM 1.0 cm 0.6 - 1.0 / 0.6 - 0.9 cm LVPW Systolic Thickness MM 1.7 cm RV Diastolic Diameter MM 1.3 cm Aortic Annulus Diameter 3.6 cm LA Ao Ratio MM 1.1 MV E Point Septal Separation 1.2 cm DOPPLER AV Peak Velocity 127.0 cm/s LVOT Peak Velocity 103.0 cm/s AV Area Cont Eq vti 2.1 cm squared AV Area Cont Eq pk 2.7 cm squared MV Area PHT 5.0 cm squared Mitral E to A Ratio 1.7 MV E' Velocity 45.5 cm/s Mitral E to MV E' Ratio 5.9 Mitral E to LV E' Lateral Ratio 5.2 Mitral E to LV E' Septal Ratio 6.8 TR Peak Velocity 208.0 cm/s TR Peak Gradient 17.3 mmHg PV Peak Velocity 123.0 cm/s FINDINGS Left Ventricle Normal left ventricular cavity size. Normal left ventricular systolic function. No regional wall motion abnormalities. Left ventricular ejection fraction is estimated at 65 %. Grade II/IV diastolic dysfunction, moderately elevated filling pressures. Right Ventricle The right ventricle is normal in size and function. RVSP could not be calculated due to incomplete tricuspid regurgitation velocity profile. Right Atrium The right atrium is normal in size. Left Atrium The left atrium is normal in size. Mitral Valve Structurally normal mitral valve without significant stenosis or prolapse. There is mild mitral regurgitation. Aortic Valve Structurally normal aortic valve without significant sclerosis or stenosis. There is no aortic regurgitation. Tricuspid Valve [id number] tricuspid valve regurgitation. Pulmonic Valve Structurally normal pulmonic valve without significant stenosis. There is no pulmonic regurgitation. Pericardium Normal pericardium without effusion. Aorta Normal ascending aorta dimension. CONCLUSIONS 1-Normal left ventricular cavity size. Normal left ventricular systolic function. No regional wall motion abnormalities. Left ventricular ejection fraction is estimated at 65 %. Grade II/IV diastolic dysfunction, moderately elevated filling pressures. 2-No significant valve abnormalities. 3-There is no pericardial effusion. 4-The right ventricle is normal in size and function. RVSP could not be calculated due to incomplete tricuspid regurgitation velocity profile. 4-Pztz-ue-moderate tricuspid valve regurgitation. 6-Structurally normal mitral valve without significant stenosis or prolapse. There is mild mitral regurgitation. 7-Right atrial pressure is around 5 mm of mercury. 8-There are no prior echocardiogram studies to compare. Dimitrios Benson MD (Electronically Signed) Final Date: 29 October 2020 20:00 S
[2020-10-29] MEDS: vancomycin 1,250 MG/250 ML PIGGYBACK 250 MG IV (18:07)
--- NOTE | 2020-10-29 20:56 | PC.NURSE ---
Equipment not available at this time.
[2020-10-30] VITALS (42 sets, daily range): BP systolic 79–122; BP diastolic 51–98; PULSE 80–122; RESP 11–30; TEMP 36.2–37.2; O2SAT 87–97
[2020-10-30] MEDS: piperacillin-tazobactam 3.375 GM in sodium chloride 0.9% (plus) 50 ML IV ×3 (02:02→17:34)
[2020-10-30] MEDS: dilTIAZem 30 mg Tablet PO ×2 (02:08→08:36)
[2020-10-30 04:08] LABS: Basophils # 0.1 10^3/uL (0.0-0.1); Basophils % 0.3 %; Hematocrit 39.2 % (42.0-52.0); Hemoglobin 13.4 g/dL (11.7-16.6); Lymphocytes # 0.9 10^3/uL (0.8-4.8); Mean Corpuscular HGB Conc 34.2 g/dL (30.0-36.0); Mean Corpuscular Hemoglobin 30.5 pg (28.0-34.0); Mean Corpuscular Volume 89.1 fL (80-94); Monocytes # 0.5 10^3/uL (0.2-0.9); Monocytes % 1.5 %; Neutrophils # 28.98 10^3/uL (1.8-7.7); Nucleated Red Blood Cells % 0 %; Platelet Count 474 10^3/cmm (130-400); Red Cell Distribution Width 13.5 % (12.1-15.1)
[2020-10-30 04:11] LABS: White Blood Count 30.9 10^3/uL (4.0-10.0)
[2020-10-30 04:41] LABS: Alanine Aminotransferase 87 U/L (0-41); Albumin Level 2.4 g/dL (3.5-5.2); Alkaline Phosphatase 103 IU/L (40-130); Anion Gap 18.2 (5-19); Aspartate Amino Transferase 167 U/L (0-40); Blood Urea Nitrogen 62 mg/dL (8-23); Calcium 7.3 mg/dL (8.5-10.5); Carbon Dioxide 23 mmol/L (22-29); Chloride 95 mmol/L (98-107); Glomerular Filtration Rate 29.9 mL/min (90-130); Glucose 116 mg/dL (65-115); Magnesium 2.8 mg/dL (1.7-2.3); Osmolality Calculated 295 mOsm/kg (285-295); Potassium 3.2 mmol/L (3.5-5.1); Sodium 133 mmol/L (136-145); Total Bilirubin 0.5 mg/dL (0.15-1.2); Total Protein 6.4 g/dL (6.6-8.7)
--- NOTE | 2020-10-30 06:58 | PM.PN ---
Subjective Subjective: Interval history: Weaned off Cardizem drip, had 2050 mL urine output overnight. Afebrile, normotensive, HR controlled. Improved leukocytosis, worsening renal function, likely due to diuretic given yesterday. Increased transaminitis. Resting quietly in bed, seems to be feeling somewhat better today, has been sitting up most of the morning, managed to get some sleep overnight. Medications: Reviewed: Yes Medication Review Details: Active Medications Generic Name Dose Route Start Last Admin Trade Name Freq PRN Reason Stop Dose Admin Acetaminophen 650 mg 10/28/20 17:45 Acetaminophen 32 5 Mg Tablet PO Q6H PRN Mild/Mod Pain Or Temp >/= 101 Hydrocodone Bitart /Acetaminophen 1 tab 10/28/20 17:45 Hydrocodone-Acet aminophen 5-325 Mg Tablet PO Q4H PRN MODERATE TO SEVER E PAIN Albuterol/Ipratrop ium 3 ml 10/28/20 17:45 Ipratropium-Albu terol 3 Ml Neb INHALATION Q6H.RESPIRATORY P RN SHORTNESS OF VIKAS TH Apixaban 5 mg 10/28/20 22:30 10/29/20 18:04 Apixaban 5 Mg Ta blet PO 5 mg BID SAUMYA Administration Diltiazem HCl 30 mg 10/29/20 08:45 10/30/20 02:08 Diltiazem 30 Mg Tablet PO 30 mg Q6H SAUMYA Administration Famotidine 20 mg 10/28/20 18:00 10/29/20 18:03 Famotidine 20 Mg Tablet PO 20 mg BID SAUMYA Administration Furosemide 40 mg 10/29/20 07:00 10/29/20 21:01 Furosemide 10 Mg /Ml Sdv 4ml IVP 40 mg Q12H SAUMYA Administration Guaifenesin/Dextro methorphan 10 ml 10/28/20 18:30 10/30/20 00:14 Guaifenesin-Dext romethorphan Udc 1 0 Ml PO Not Given Q6H SAUMYA Diltiazem HCl 125 mg/ Sodium 125 mls @ 10 mls/ hr 10/28/20 10:45 10/30/20 04:24 Chloride IV 0 mg/hr .[id number] SAUMYA 0 mls/hr Infusion 10 MG/HR Azithromycin 500 m g/ Sodium 250 mls @ 250 mls /hr 10/28/20 17:45 10/29/20 16:58 Chloride IV Infused Q24H SAUMYA Infusion Protocol Piperacillin Sod/T azobactam 50 mls @ 12.5 mls /hr 10/28/20 18:30 10/30/20 02:02 Sod 3.375 gm/ So dium Chloride IV 12.5 mls/hr Q8H SAUMYA Administration Protocol Vancomycin/PEG/NAD A/Lysine/Water 1,250 mg in 250 m ls @ 250 mls/hr 10/28/20 18:30 10/29/20 18:07 Vancocin IV 250 mls/hr Q24H SAUMYA Administration Multivitamins Ther apeutic 1 tab 10/28/20 17:45 Multivitamin The rapeutic Tablet PO DAILY PRN unknown Naloxone HCl 0.1 mg 10/28/20 17:45 Naloxone 0.4 Mg/ Ml Sdv IVP Q2M PRN OPIATERV Ondansetron HCl 4 mg 10/28/20 17:45 Ondansetron 2 Mg /Ml Sdv 2 Ml IVP Q8H PRN vomiting, or N/V if npo No Known Allergies Allergy (Verified 10/28/20 11:59) Vitals/I&O/Wt Last Vital Signs Temp 97.6 F 10/30/20 02:00 Pulse 101 H 10/30/20 06:00 Resp 19 H 10/30/20 06:00 BP 100/68 10/30/20 06:00 Pulse Ox 94 10/30/20 06:00 10/29/20 10/29/20 10/30/20 14:59 22:59 06:59 Intake Total 592 / 592 1347 / 1939 291.875 / 2230.875 Output Total 1000 / 1000 2050 / 3050 Balance 592 / 592 347 / 939 -1758.125 / -819.125 Weight last 48 hrs Weight 83.869 kg Weight 72.575 kg Weight 72.575 kg Physical Exam Const: COMMON NORMALS: no acute distress, patient oriented x3 and alert GENERAL APPEARANCE: cooperative, comfortable, ill appearing (less so today) and frail appearing ORIENTATION/CONSCIOUSNESS: Yes awake OTHER: -appears quite fatigued though less so today HENMT: COMMON NORMALS: normocephalic, atraumatic, hearing grossly normal bilaterally and moist oral mucous membranes HEAD & SCALP: normocephalic and atraumatic Eye: COMMON NORMALS: Equal, round and reactive pupils present, EOMs intact bilaterally and conjunctivae normal CONJUNCTIVA: Yes conjunctivae normal PUPIL: Yes Equal, round and reactive pupils present Neck/C-Spine: COMMON NORMALS: full ROM GENERAL: Yes normal visual inspection and Yes trachea midline Resp: COMMON NORMALS: normal respiratory effort, No retractions and No use of accessory muscles EFFORT & INSPECTION: Yes able to speak in complete sentences, Yes symmetric chest movement and No tachypneic AUSCULTATION: rhonchi right upper and diminished lung sounds OTHER: -on 4 L NC Cardio: COMMON NORMALS: S1 normal heart sound present, S2 normal heart sound present and No murmurs present (Cardio) RATE: tachycardic RHYTHM: abnormal rhythm irregularly irregular HEART SOUNDS: S1 normal heart sound present and S2 normal heart sound present GI: COMMON NORMALS: Normal to inspection, nondistended, normoactive bowel sounds present, Soft to palpation and non-tender INSPECTION: Yes central obesity PALPATION: Yes Soft to palpation : BLADDER/KIDNEY EXAM: Yes catheter in place Extremity: COMMON NORMALS: normal to inspection, full ROM and no clubbing, cyanosis or edema; negative for no pedal edema Neuro: COMMON NORMALS: patient oriented x3, moves all extremities, no focal motor deficits and no sensory deficits noted SENSORIUM/ORIENTATION: Yes alert OTHER: -generally quite weak Psych: COMMON NORMALS: mental status grossly normal, Normal thought process present, cooperative, normal affect and speech normal SPEECH: Yes normal speech THOUGHT PROCESS: Normal thought process present Skin: COMMON NORMALS: no rashes or lesions noted, no jaundice, no petechiae and no mottling GENERAL SKIN EXAM: no rashes or lesions noted Urinary Catheter Management^: Laboy: Cath Placed During This Visit: yes Reason for Continuing Indwelling Catheter: Accurate Measurement of Urinary Output in Critically Ill Patients Urinary Catheter Date of Insertion: 10/28/20 Urinary Catheter Time of Insertion: 22:59 Data : 10/30/20 03:00 10/30/20 03:00 Micro: Microbiology 10/28/20 11:05 Blood Culture - Preliminary Blood NEGATIVE TO DATE 10/28/20 11:05 Blood Culture - Preliminary Blood NEGATIVE TO DATE 10/28/20 23:24 Legionella Urinary Antigen - Final Urine,Voided A&P Assessment and plan (1) Respiratory failure with hypoxia: -With noted evidence of right upper lobe pneumonia on chest x-ray and CT chest -COVID-19 rapid testing negative, PCR negative; d/c isolation precautions -Continue broad-spectrum IV antibiotic coverage with vancomycin, Zosyn, azithromycin as quite ill-appearing -Noted significant leukocytosis with neutrophilic predominance, continue to trend WBC -Afebrile, normotensive, on 4 L nasal cannula, tachypnea. Continue to monitor vital signs -Continue to monitor respiratory status -blood cx: prelim negative -Legionella negative Status: Acute Qualifiers: Chronicity: acute Qualified Code(s): J96.01 - Acute respiratory failure with hypoxia (2) Heart failure: -noted elevated BNP -hold IV lasix today due to noted renal impairment -continue to monitor Is & Os, daily weights, has Laboy catheter in place -Echo: EF=65%, no RWMA, G2DD, mild MR, mild-moderate TR Status: Acute Qualifiers: Heart failure chronicity: acute Heart failure type: diastolic Qualified Code(s): I50.31 - Acute diastolic (congestive) heart failure (3) Sepsis: -as evidenced by lactic acidosis, leukocytosis, tachypnea, tachycardia, hypoxia -secondary to infection as noted above -lactic acidosis resolved -repeat pro-calcitonin in AM Status: Acute Qualifiers: Acute respiratory failure type: with hypoxia Sepsis acute organ dysfunction status: with acute organ dysfunction Sepsis type: sepsis due to unspecified organism Severe sepsis acute organ dysfunction type: acute respiratory failure Severe sepsis shock status: without septic shock Qualified Code(s): A41.9 - Sepsis, unspecified organism; R65.20 - Severe sepsis without septic shock; J96.01 - Acute respiratory failure with hypoxia (4) Acute kidney injury superimposed on CKD: -DYLAN on CKD stage 2 -baseline Cr around 0.8-0.9 -continue to monitor renal function, avoid nephrotoxins; noted worsening impairment likely due to diuresis Status: Acute (5) Atrial fibrillation with rapid ventricular response: -weaned off Cardizem drip, on PO -on Eliquis -appears to be new onset, likely triggered by infection, CHF exacerbation -Echo as noted above Status: Acute Additional A&P Information -Transaminitis; could be hepatic congestion; negative hepatitis panel, [id number], US with noted slight liver enlargement, continue to trend LFTs -regular diet as tolerated; poor oral intake, add Ensure -GI ppx with famotidine -DVT ppx not needed as on Eliquis -Dispo: home -Code status: FULL code -continue ICU care given sepsis, pneumonia, atrial fibrillation Attestations Medical Necessity Statement*: Patient requires hospitalization for continued IV antibiotics secondary to pneumonia, monitoring of renal function given DYLAN. Time Spent in Patient Care: 16 - 35 minutes (>than 50% of time spent in counselling and/or direct pt care on unit). 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
--- NOTE | 2020-10-30 07:00 | US_ITS ---
WS: [id number] RIGHT UPPER QUADRANT ULTRASOUND HISTORY: worsening transaminitis COMPARISON: None available. Liver: 18.1 cm in length. Liver is top normal size. Very mild coarsened echotexture without a focal m ass. No bile duct dilatation. Gallbladder: Normally distended gallbladder with no stones or wall thickening. CBD: 0.5 cm Pancreas: Normal size and echogenicity. Right kidney: 12.2 cm in length. Normal size and echogenicity. No hydronephrosis or mass. Aorta and IVC: Unremarkable abdominal aorta and IVC. No ascites. US/US liver [id number] IMPRESSION: 1. Very slight enlargement of the liver. No mass or bile duct dilatation. 2. Negative gallbladder.
[2020-10-30] MEDS: azithromycin 500 MG in sodium chloride 0.9% 250 ML 250 MG IV (07:40)
[2020-10-30 07:57] LABS: Hepatitis A Antibody IgM Non-Reactive (Nonreactive); Hepatitis B Core IgM Non-Reactive (Nonreactive); Hepatitis B Surface Antigen Non-Reactive (Nonreactive); Hepatitis C Virus Antibody Non-Reactive (Nonreactive)
[2020-10-30] MEDS: famotidine 20 mg Tablet PO ×2 (08:36→17:12)
[2020-10-30 08:43] LABS: Lactate Dehydrogenase 364 U/L (135-225)
--- NOTE | 2020-10-30 09:20 | PC.CHAP ---
Pastoral Care Encounter/Spiritual Assessment Type of Contact [] Declined skip hoist operator visit [] Patient/Family/Request visit [] Outpatient visit [] Follow-up visit [] Physician referral [] Code/Alert [] Routine visit [] Staff referral [] Actively dying [] Patient sleeping [] Family support [] [] Out of room [] Palliative care [] [] Receiving care in room [] Pre-surgical visit [] Trauma [] Long length of stay [x] ICU visit [] Other: Relational/Emotional Strength [] Patient feels connected with others/family/visitors/staff [] Distress [] Loneliness/isolation [] Abandonment Spirituality of Patient [] Person of Yahaira [] Attends Restorationist of their Yahaira [] Believes in Prayer [] Reads Bible or Yazdanism materials [] There are Spiritual issues to be addressed Database Report Writer Interventions [x] Prayer [] Active listening [] Non-anxious presence [] Spiritual/emotional support [] Crisis/trauma care [] Spiritual counseling [] Bereavement support [] Provided bereavement packet [] Provided Bible/devotional materials [] Provided toy/stuffed animal, coloring book to patient or family member [] Provided Communion [] Anointing/Randolph [] Salvation [x] Completed spiritual assessment [] Other: Impact on Illness or Injury [] Angry [] Fearful [] Anxious [] Often cries [] Exhaustion [] Unable to work [] Unable to attend mosque [] Unable to walk/stand [] Unable to read [] Unable to drive [] Unable to eat/drink [] Unable to sleep [] Unable to be with family [] Patient intubated [] Other: Summary Time spent with patient
[2020-10-30] MEDS: metoprolol tartrate 1 mg/1 mL SDV 5 mL 2.5 MG IV (10:29)
[2020-10-30] MEDS: guaiFENesin-dextromethorphan UDC 10 mL PO ×2 (12:12→17:34)
[2020-10-30] MEDS: dilTIAZem 60 mg Tablet PO ×2 (14:24→20:13)
[2020-10-30] MEDS: potassium chloride ER 20 mEq Tablet 40 MEQ PO (15:12)
[2020-10-30] MEDS: apixaban 5 mg Tablet PO (17:12)
[2020-10-30 18:44] LABS: Vancomycin Trough 8.6 ug/mL (10-15)
[2020-10-30] MEDS: vancomycin 1,250 MG/250 ML PIGGYBACK 250 MG IV (18:49)
--- NOTE | 2020-10-30 20:00 | PC.NURSE ---
Equipment for scds unavailable at this time
[2020-10-31] VITALS (26 sets, daily range): BP systolic 93–154; BP diastolic 56–88; PULSE 79–122; RESP 11–26; TEMP 36.1–36.6; O2SAT 74–97
[2020-10-31] MEDS: piperacillin-tazobactam 3.375 GM in sodium chloride 0.9% (plus) 50 ML IV ×3 (02:40→17:54)
[2020-10-31] MEDS: dilTIAZem 60 mg Tablet PO ×4 (02:40→20:53)
[2020-10-31 04:26] LABS: Basophils % 0.2 %; Eosinophils % 0.1 %; Hemoglobin 11.9 g/dL (11.7-16.6); Lymphocytes # 2.1 10^3/uL (0.8-4.8); Lymphocytes % 11.5 %; Mean Corpuscular HGB Conc 33.1 g/dL (30.0-36.0); Mean Corpuscular Hemoglobin 29.8 pg (28.0-34.0); Mean Platelet Volume 10.5 fL (7.4-10.4); Monocytes # 0.5 10^3/uL (0.2-0.9); Monocytes % 2.7 %; Neutrophils # 15.58 10^3/uL (1.8-7.7); Neutrophils % 84.2 %; Nucleated Red Blood Cells % 0 %; Platelet Count 515 10^3/cmm (130-400); Red Cell Distribution Width 13.6 % (12.1-15.1); White Blood Count 18.5 10^3/uL (4.0-10.0)
[2020-10-31 05:09] LABS: Alanine Aminotransferase 78 U/L (0-41); Albumin Level 2.3 g/dL (3.5-5.2); Alkaline Phosphatase 77 IU/L (40-130); Anion Gap 15.4 (5-19); Aspartate Amino Transferase 86 U/L (0-40); Blood Urea Nitrogen 59 mg/dL (8-23); Calcium 7.3 mg/dL (8.5-10.5); Carbon Dioxide 24 mmol/L (22-29); Chloride 100 mmol/L (98-107); Globulin 3.4 g/dL (1.3-4.6); Glomerular Filtration Rate 37.7 mL/min (90-130); Glucose 105 mg/dL (65-115); Magnesium 2.8 mg/dL (1.7-2.3); Osmolality Calculated 299 mOsm/kg (285-295); Potassium 3.4 mmol/L (3.5-5.1); Sodium 136 mmol/L (136-145); Total Bilirubin 0.4 mg/dL (0.15-1.2); Total Protein 5.7 g/dL (6.6-8.7)
[2020-10-31 05:10] LABS: Procalcitonin 11.73 ng/mL (0-0.5)
[2020-10-31 05:32] LABS: Slide Review Slide Review Perform
--- NOTE | 2020-10-31 07:59 | P.PN_ITS ---
Subjective Subjective: Interval history: Had 1600 mL urine output overnight, low normal BP, afebrile, on 3 L NC, decreased leukocytosis, improved renal function and LFTs. Sitting up in bed, able to get up and ambulate in hallway with PT this AM, in good spirits, rested well overnight, good appetite. Remains off cardizem drip. Medications: Reviewed: Yes Medication Review Details: Active Medications Generic Name Dose Route Start Last Admin Trade Name Freq PRN Reason Stop Dose Admin Acetaminophen 650 mg 10/28/20 17:45 Acetaminophen 32 5 Mg Tablet PO Q6H PRN Mild/Mod Pain Or Temp >/= 101 Hydrocodone Bitart /Acetaminophen 1 tab 10/28/20 17:45 Hydrocodone-Acet aminophen 5-325 Mg Tablet PO Q4H PRN MODERATE TO SEVER E PAIN Albuterol/Ipratrop ium 3 ml 10/28/20 17:45 Ipratropium-Albu terol 3 Ml Neb INHALATION Q6H.RESPIRATORY P RN SHORTNESS OF VIKAS TH Apixaban 5 mg 10/28/20 22:30 10/30/20 17:12 Apixaban 5 Mg Ta blet PO 5 mg BID SAUMYA Administration Diltiazem HCl 60 mg 10/30/20 14:30 10/31/20 02:40 Diltiazem 60 Mg Tablet PO 60 mg Q6H SAUMYA Administration Famotidine 20 mg 10/28/20 18:00 10/30/20 17:12 Famotidine 20 Mg Tablet PO 20 mg BID SAUMYA Administration Furosemide 40 mg 10/29/20 07:00 10/29/20 21:01 Furosemide 10 Mg /Ml Sdv 4ml IVP 40 mg Q12H SAUMYA Administration Guaifenesin/Dextro methorphan 10 ml 10/28/20 18:30 10/31/20 07:00 Guaifenesin-Dext romethorphan Udc 1 0 Ml PO Not Given Q6H SAUMYA Diltiazem HCl 125 mg/ Sodium 125 mls @ 10 mls/ hr 10/28/20 10:45 10/31/20 01:13 Chloride IV Not Given .[id number] SAUMYA 10 MG/HR Azithromycin 500 m g/ Sodium 250 mls @ 250 mls /hr 10/28/20 17:45 10/30/20 11:07 Chloride IV Infused Q24H SAUMYA Infusion Protocol Piperacillin Sod/T azobactam 50 mls @ 12.5 mls /hr 10/28/20 18:30 10/31/20 06:40 Sod 3.375 gm/ So dium Chloride IV Infused Q8H SAUMYA Infusion Protocol Vancomycin/PEG/NAD A/Lysine/Water 1,250 mg in 250 m ls @ 250 mls/hr 10/28/20 18:30 10/30/20 20:29 Vancocin IV Infused Q24H SAUMYA Infusion Multivitamins Ther apeutic 1 tab 10/28/20 17:45 Multivitamin The rapeutic Tablet PO DAILY PRN unknown Naloxone HCl 0.1 mg 10/28/20 17:45 Naloxone 0.4 Mg/ Ml Sdv IVP Q2M PRN OPIATERV Ondansetron HCl 4 mg 10/28/20 17:45 Ondansetron 2 Mg /Ml Sdv 2 Ml IVP Q8H PRN vomiting, or N/V if npo No Known Allergies Allergy (Verified 10/28/20 11:59) Vitals/I&O/Wt Last Vital Signs Temp 97.4 F L 10/31/20 02:00 Pulse 79 10/31/20 06:00 Resp 18 10/31/20 06:00 BP 96/63 10/31/20 06:00 Pulse Ox 90 10/31/20 06:00 10/30/20 10/31/20 10/31/20 22:59 06:59 14:59 Intake Total 1040 / 2030 290 / 2320 Output Total 1000 / 1000 1600 / 2600 Balance 40 / 1030 -1310 / -280 Weight last 48 hrs Weight 83.234 kg Weight 83.869 kg Physical Exam Const: COMMON NORMALS: no acute distress, patient oriented x3 and alert GENERAL APPEARANCE: cooperative and comfortable; not ill appearing ORIENTATION/CONSCIOUSNESS: Yes awake OTHER: -appears less fatigued HENMT: COMMON NORMALS: normocephalic, atraumatic, hearing grossly normal bilaterally and moist oral mucous membranes HEAD & SCALP: normocephalic and atraumatic Eye: COMMON NORMALS: Equal, round and reactive pupils present, EOMs intact bilaterally and conjunctivae normal CONJUNCTIVA: Yes conjunctivae normal PUPIL: Yes Equal, round and reactive pupils present Neck/C-Spine: COMMON NORMALS: full ROM GENERAL: Yes normal visual inspection and Yes trachea midline Resp: COMMON NORMALS: normal respiratory effort, No retractions and No use of accessory muscles EFFORT & INSPECTION: Yes able to speak in complete sentence s, Yes symmetric chest movement and No tachypneic AUSCULTATION: rhonchi right upper and diminished lung sounds OTHER: -on 3 L NC Cardio: COMMON NORMALS: S1 normal heart sound present, S2 normal heart sound present and No murmurs present (Cardio) RATE: tachycardic (intermittently) RHYTHM: abnormal rhythm irregularly irregular HEART SOUNDS: S1 normal heart sound present and S2 normal heart sound present OTHER: -more consistent rate control GI: COMMON NORMALS: Normal to inspection, nondistended, normoactive bowel sounds present, Soft to palpation and non-tender INSPECTION: Yes central obesity PALPATION: Yes Soft to palpation : BLADDER/KIDNEY EXAM: Yes catheter in place Extremity: COMMON NORMALS: normal to inspection, full ROM and no clubbing, cyanosis or edema; negative for no pedal edema Neuro: COMMON NORMALS: patient oriented x3, moves all extremities, no focal motor deficits and no sensory deficits noted SENSORIUM/ORIENTATION: Yes alert OTHER: -generally quite weak but improving Psych: COMMON NORMALS: mental status grossly normal, Normal thought process present, cooperative, normal affect and speech normal SPEECH: Yes normal speech THOUGHT PROCESS: Normal thought process present Skin: COMMON NORMALS: no rashes or lesions noted, no jaundice, no petechiae and no mottling GENERAL SKIN EXAM: no rashes or lesions noted Urinary Catheter Management^: Laboy: Cath Placed During This Visit: yes Reason for Continuing Indwelling Catheter: Accurate Measurement of Urinary Output in Critically Ill Patients Urinary Catheter Date of Insertion: 10/28/20 Urinary Catheter Time of Insertion: 22:59 Data : 10/31/20 03:50 10/31/20 03:50 Micro: Microbiology 10/28/20 20:00 Urine Culture - Preliminary Urine,Voided A&P Assessment and plan (1) Respiratory failure with hypoxia: -With noted evidence of right upper lobe pneumonia on chest x-ray and CT chest -COVID-19 rapid testing negative, PCR negative; d/c isolation precautions -on broad-spectrum IV antibiotic coverage with vancomycin, zosyn, azithromycin as quite ill-appearing initially, will d/c vancomycin at this time -Noted significant leukocytosis with neutrophilic predominance, improving, continue to trend WBC -Afebrile, normotensive, on 3 L nasal cannula, tachypnea. Continue to monitor vital signs -Continue to monitor respiratory status -blood cx: prelim negative -Legionella negative Status: Acute Qualifiers: Chronicity: acute Qualified Code(s): J96.01 - Acute respiratory failure with hypoxia (2) Heart failure: -noted elevated BNP -continue to hold IV lasix due to noted renal impairment -continue to monitor Is & Os, daily weights, has Laboy catheter in place -Echo: EF=65%, no RWMA, G2DD, mild MR, mild-moderate TR Status: Acute Qualifiers: Heart failure chronicity: acute Heart failure type: diastolic Qualified Code(s): I50.31 - Acute diastolic (congestive) heart failure (3) Sepsis: -as evidenced by lactic acidosis, leukocytosis, tachypnea, tachycardia, hypoxia -secondary to infection as noted above -lactic acidosis resolved -repeat pro-calcitonin in AM improving (30->11) Status: Acute Qualifiers: Acute respiratory failure type: with hypoxia Sepsis acute organ dysfunction status: with acute organ dysfunction Sepsis type: sepsis due to unspecified organism Severe sepsis acute organ dysfunction type: acute respiratory failure Severe sepsis shock status: without septic shock Qualified Code(s): A41.9 - Sepsis, unspecified organism; R65.20 - Severe sepsis without septic shock; J96.01 - Acute respiratory failure with hypoxia (4) Acute kidney injury superimposed on CKD: -DYLAN on CKD stage 2 -baseline Cr around 0.8-0.9 -continue to monitor renal function, avoid nephrotoxins Status: Acute (5) Atrial fibrillation with rapid ventricular response: -weaned off Cardizem drip, on PO -on Eliquis -appears to be new onset, likely triggered by infection, CHF exacerbation -Echo as noted above Status: Acute Additional A&P Information -Transaminitis; could be hepatic congestion; negative hepatitis panel, LDH-364, US with noted slight liver enlargement, continue to trend LFTs, improving -regular diet as tolerated; poor oral intake, Ensure -GI ppx with famotidine -DVT ppx not needed as on Eliquis -Dispo: home -Code status: FULL code -transfer to [facility]SU Attestations Medical Necessity Statement*: Patient requires hospitalization for continued treatment of pneumonia, atrial fibrillation with RVR, DYLAN. Time Spent in Patient Care: 16 - 35 minutes (>than 50% of time spent in counselling and/or direct pt care on unit) . 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
[2020-10-31] MEDS: azithromycin 500 MG in sodium chloride 0.9% 250 ML 250 MG IV (08:21)
[2020-10-31] MEDS: apixaban 5 mg Tablet PO ×2 (08:22→17:57)
[2020-10-31] MEDS: famotidine 20 mg Tablet PO ×2 (08:22→17:57)
[2020-10-31] MEDS: potassium chloride ER 20 mEq Tablet 40 MEQ PO (08:25)
--- NOTE | 2020-10-31 09:57 | PC.SOCIAL ---
IMM Update Pg. 2 of IMM updated and reviewed with patient, who verbalized understanding. Copy provided.
--- NOTE | 2020-10-31 15:00 | PC.NURSE ---
Pt pleasantly refusing cough syrup. States he doesn't feel like he needs it and that he needs to cough so he's able to expectorate sputum.
--- NOTE | 2020-10-31 17:09 | PC.NURSE ---
patient received from ICU alert oriented and stable patient oriented to room.
[2020-10-31] MEDS: guaiFENesin-dextromethorphan UDC 10 mL PO (17:57)
--- NOTE | 2020-10-31 22:25 | PC.NURSE ---
NURSE NOTE: PT ALERT AND ORIENTED X4. VERY SLEEPY/AROUSES EASILY. MOVES ALL EXTREMITIES AND FOLLOWS COMMANDS. ALL VS AND ASSESSMENTS CHARTED. DENIES PAIN. NO DISTRESS NOTED AT THIS TIME. WILL CONTINUE TO MONITOR.
[2020-11-01] VITALS (9 sets, daily range): BP systolic 92–126; BP diastolic 65–76; PULSE 68–108; RESP 12–22; TEMP 35.8–37.1; O2SAT 90–97
[2020-11-01] MEDS: dilTIAZem 60 mg Tablet PO ×4 (03:45→19:30)
[2020-11-01] MEDS: piperacillin-tazobactam 3.375 GM in sodium chloride 0.9% (plus) 50 ML IV ×3 (03:46→17:46)
[2020-11-01 03:50] LABS: Hematocrit 37.6 % (42.0-52.0); Hemoglobin 12.1 g/dL (11.7-16.6); Mean Corpuscular HGB Conc 32.2 g/dL (30.0-36.0); Mean Corpuscular Hemoglobin 30.3 pg (28.0-34.0); Mean Corpuscular Volume 94.2 fL (80-94); Mean Platelet Volume 10.1 fL (7.4-10.4); Platelet Count 498 10^3/cmm (130-400); Red Blood Count 3.99 10^6/uL (4.1-5.3); White Blood Count 13.5 10^3/uL (4.0-10.0)
[2020-11-01 04:24] LABS: Absolute Neutrophil 10.8 10^3/cmm (1.4-6.5); Absolute Segmented Neutrophil 10.8 10/cmm (1.6-7.1); Eosinophils 0 %; Hypochromasia 1+; Lymphocytes 16 %; Monocytes Absolute 0.5 10^3/cmm (0.1-0.6); Platelet Estimate Increased (Normal); Segmented Neutrophils 80 %; Total Cells Counted 100 (0-100)
[2020-11-01 04:25] LABS: Anisocytosis 1+
[2020-11-01 04:32] LABS: Alanine Aminotransferase 65 U/L (0-41); Albumin Level 2.2 g/dL (3.5-5.2); Alkaline Phosphatase 69 IU/L (40-130); Anion Gap 11.8 (5-19); Aspartate Amino Transferase 54 U/L (0-40); Blood Urea Nitrogen 42 mg/dL (8-23); Carbon Dioxide 26 mmol/L (22-29); Chloride 105 mmol/L (98-107); Globulin 3.2 g/dL (1.3-4.6); Glomerular Filtration Rate 50.4 mL/min (90-130); Glucose 88 mg/dL (65-115); Osmolality Calculated 298 mOsm/kg (285-295); Potassium 3.8 mmol/L (3.5-5.1); Sodium 139 mmol/L (136-145); Total Bilirubin 0.3 mg/dL (0.15-1.2); Total Protein 5.4 g/dL (6.6-8.7)
--- NOTE | 2020-11-01 08:37 | PM.PN ---
Subjective Subjective: Interval history: Weaned to RA, had 500 mL urine output overnight, afebrile, decreasing leukocytosis, continued improvement in renal function. Repeat CXR today. Resting quietly in bed, in good spirits, rested well overnight, HR better controlled. Medications: Reviewed: Yes Medication Review Details: Active Medications Generic Name Dose Route Start Last Admin Trade Name Freq PRN Reason Stop Dose Admin Acetaminophen 650 mg 10/28/20 17:45 Acetaminophen 32 5 Mg Tablet PO Q6H PRN Mild/Mod Pain Or Temp >/= 101 Hydrocodone Bitart /Acetaminophen 1 tab 10/28/20 17:45 Hydrocodone-Acet aminophen 5-325 Mg Tablet PO Q4H PRN MODERATE TO SEVER E PAIN Albuterol/Ipratrop ium 3 ml 10/28/20 17:45 Ipratropium-Albu terol 3 Ml Neb INHALATION Q6H.RESPIRATORY P RN SHORTNESS OF VIKAS TH Apixaban 5 mg 10/28/20 22:30 10/31/20 17:57 Apixaban 5 Mg Ta blet PO 5 mg BID SAUMYA Administration Diltiazem HCl 60 mg 10/30/20 14:30 11/01/20 03:45 Diltiazem 60 Mg Tablet PO 60 mg Q6H SAUMYA Administration Famotidine 20 mg 10/28/20 18:00 10/31/20 17:57 Famotidine 20 Mg Tablet PO 20 mg BID SAUMYA Administration Furosemide 40 mg 10/29/20 07:00 10/29/20 21:01 Furosemide 10 Mg /Ml Sdv 4ml IVP 40 mg Q12H SAUMYA Administration Guaifenesin/Dextro methorphan 10 ml 10/28/20 18:30 11/01/20 06:13 Guaifenesin-Dext romethorphan Udc 1 0 Ml PO Not Given Q6H SAUMYA Diltiazem HCl 125 mg/ Sodium 125 mls @ 10 mls/ hr 10/28/20 10:45 11/01/20 03:44 Chloride IV Not Given .[id number] SAUMYA 10 MG/HR Azithromycin 500 m g/ Sodium 250 mls @ 250 mls /hr 10/28/20 17:45 11/01/20 00:54 Chloride IV Infused Q24H SAUMYA Infusion Protocol Piperacillin Sod/T azobactam 50 mls @ 12.5 mls /hr 10/28/20 18:30 11/01/20 06:13 Sod 3.375 gm/ So dium Chloride IV Infused Q8H SAUMYA Infusion Protocol Multivitamins Ther apeutic 1 tab 10/28/20 17:45 Multivitamin The rapeutic Tablet PO DAILY PRN unknown Naloxone HCl 0.1 mg 10/28/20 17:45 Naloxone 0.4 Mg/ Ml Sdv IVP Q2M PRN OPIATERV Ondansetron HCl 4 mg 10/28/20 17:45 Ondansetron 2 Mg /Ml Sdv 2 Ml IVP Q8H PRN vomiting, or N/V if npo Potassium Chloride 40 meq 10/31/20 09:00 10/31/20 08:25 Potassium Chlori de Er 20 Meq Table t PO 40 meq DAILY SAUMYA Administration No Known Allergies Allergy (Verified 10/28/20 11:59) Vitals/I&O/Wt Last Vital Signs Temp 97.8 F 11/01/20 06:58 Pulse 90 11/01/20 06:58 Resp 22 H 11/01/20 06:58 BP 92/65 11/01/20 06:58 Pulse Ox 90 11/01/20 06:58 10/31/20 11/01/20 11/01/20 22:59 06:59 14:59 Intake Total 350 / 640 Output Total 1195 / 1195 350 / 1545 Balance -1195 / -905 0 / -905 Weight last 48 hrs Weight 84.64 kg Weight 83.234 kg Physical Exam Const: COMMON NORMALS: no acute distress, patient oriented x3 and alert GENERAL APPEARANCE: cooperative and comfortable; not ill appearing ORIENTATION/CONSCIOUSNESS: Yes awake OTHER: -appears less fatigued HENMT: COMMON NORMALS: normocephalic, atraumatic, hearing grossly normal bilaterally and moist oral mucous membranes HEAD & SCALP: normocephalic and atraumatic Eye: COMMON NORMALS: Equal, round and reactive pupils present, EOMs intact bilaterally and conjunctivae normal CONJUNCTIVA: Yes conjunctivae normal PUPIL: Yes Equal, round and reactive pupils present Neck/C-Spine: COMMON NORMALS: full ROM GENERAL: Yes normal visual inspection and Yes trachea midline Resp: COMMON NORMALS: normal respiratory effort, No retractions and No use of accessory muscles EFFORT & INSPECTION: Yes able to speak in complete sentences, Yes symmetric chest movement and No tachypneic AUSCULTATION: rhonchi right upper and diminished lung sounds OTHER: -on RA Cardio: COMMON NORMALS: regular rate, S1 normal heart sound present, S2 normal heart sound present and No murmurs present (Cardio) RATE: regular rate and tachycardic (intermittently) RHYTHM: abnormal rhythm irregularly irregular HEART SOUNDS: S1 normal heart sound present and S2 normal heart sound present OTHER: -more consistent rate control GI: COMMON NORMALS: Normal to inspection, nondistended, normoactive bowel sounds present, Soft to palpation and non-tender INSPECTION: Yes central obesity PALPATION: Yes Soft to palpation Extremity: COMMON NORMALS: normal to inspection, full ROM and no clubbing, cyanosis or edema; negative for no pedal edema Neuro: COMMON NORMALS: patient oriented x3, moves all extremities, no focal motor deficits and no sensory deficits noted SENSORIUM/ORIENTATION: Yes alert OTHER: -generally quite weak but improving Psych: COMMON NORMALS: mental status grossly normal, Normal thought process present, cooperative, normal affect and speech normal SPEECH: Yes normal speech THOUGHT PROCESS: Normal thought process present Skin: COMMON NORMALS: no rashes or lesions noted, no jaundice, no petechiae and no mottling GENERAL SKIN EXAM: no rashes or lesions noted Urinary Catheter Management^: Laboy: Cath Placed During This Visit: yes Reason for Continuing Indwelling Catheter: Accurate Measurement of Urinary Output in Critically Ill Patients Urinary Catheter Date of Insertion: 10/28/20 Urinary Catheter Time of Insertion: 22:59 Data : 11/01/20 03:32 11/01/20 03:32 Micro: Microbiology 10/28/20 20:00 Urine Culture - Final Urine,Voided A&P Assessment and plan (1) Respiratory failure with hypoxia: -With noted evidence of right upper lobe pneumonia on chest x-ray and CT chest -COVID-19 rapid testing negative, PCR negative; d/c isolation precautions -on broad-spectrum IV antibiotic coverage with vancomycin, zosyn, azithromycin as quite ill-appearing initially, will d/c vancomycin at this time -Noted significant leukocytosis with neutrophilic predominance, improving, continue to trend WBC -Afebrile, normotensive, on 3 L nasal cannula, tachypnea. Continue to monitor vital signs -Continue to monitor respiratory status -blood cx: prelim negative -Legionella negative -repeat imaging today shows some improvement in RUL pneumonia Status: Acute Qualifiers: Chronicity: acute Qualified Code(s): J96.01 - Acute respiratory failure with hypoxia (2) Heart failure: -noted elevated BNP -continue to hold IV lasix due to noted renal impairment -continue to monitor Is & Os, daily weights, has Laboy catheter in place -Echo: EF=65%, no RWMA, G2DD, mild MR, mild-moderate TR Status: Acute Qualifiers: Heart failure chronicity: acute Heart failure type: diastolic Qualified Code(s): I50.31 - Acute diastolic (congestive) heart failure (3) Sepsis: -as evidenced by lactic acidosis, leukocytosis, tachypnea, tachycardia, hypoxia -secondary to infection as noted above -lactic acidosis resolved -repeat pro-calcitonin improving (30->11), leukocytosis decreasing Status: Resolved Qualifiers: Acute respiratory failure type: with hypoxia Sepsis acute organ dysfunction status: with acute organ dysfunction Sepsis type: sepsis due to unspecified organism Severe sepsis acute organ dysfunction type: acute respiratory failure Severe sepsis shock status: without septic shock Qualified Code(s): A41.9 - Sepsis, unspecified organism; R65.20 - Severe sepsis without septic shock; J96.01 - Acute respiratory failure with hypoxia (4) Acute kidney injury superimposed on CKD: -DYLAN on CKD stage 2 -baseline Cr around 0.8-0.9 -continue to monitor renal function, avoid nephrotoxins, renally dose meds -renal function improving Status: Acute (5) Atrial fibrillation with rapid ventricular response: -weaned off Cardizem drip, on PO -on Eliquis -appears to be new onset, likely triggered by infection, CHF exacerbation -Echo as noted above Status: Acute Additional A&P Information -Transaminitis; could be hepatic congestion; negative hepatitis panel, LDH-364, US with noted slight liver enlargement, continue to trend LFTs, improving -regular diet as tolerated; poor oral intake, Ensure -GI ppx with famotidine -DVT ppx not needed as on Eliquis -Dispo: home -Code status: FULL code -anticipate d/c in 24-48 hrs if continued improvement/stability -transfer to medical-surgical floor Attestations Medical Necessity Statement*: Patient requires hospitalization for continued telemetry monitoring, treatment of pneumonia. Time Spent in Patient Care: 16 - 35 minutes (>than 50% of time spent in counselling and/or direct pt care on unit). Coding Level of Care Code Acute Rotary Cutter Operator for Chg Fwd Exam Comprehensive Diagnoses Respiratory failure with hypoxia J96.01 Chronicity: acute Heart failure I50.31 Heart failure chronicity: acute Heart failure type: diastolic Sepsis A41.9; R65.20; J96.01 Acute respiratory failure type: with hypoxia Sepsis acute organ dysfunction status: with acute organ dysfunction Sepsis type: sepsis due to unspecified organism Severe sepsis acute organ dysfunction type: acute respiratory failure Severe sepsis shock status: without septic shock Acute kidney injury superimposed on CKD N17.9; N18.9 Atrial fibrillation with rapid ventricular response I48.91
--- NOTE | 2020-11-01 08:39 | XR_ITS ---
WS: [id number] Portable AP upright chest, 11/01/2020 Clinical Data: progression of pneumonia Comparison: Portable chest, 10/28/2020. Findings: There is partial clearing of the dense right upper lobe opacification. The infrahilar porti on of the opacification remains the same. The left lung is clear. The heart is normal. Monitor leads are on the chest wall. The heart is normal. XR/XR chest 1V portable [id number] Impression: 1. Partial clearing of dense right upper lobe pneumonia. 2. No change in right infrahilar opacity
[2020-11-01] MEDS: famotidine 20 mg Tablet PO ×2 (08:41→17:45)
[2020-11-01] MEDS: apixaban 5 mg Tablet PO ×2 (08:43→17:49)
[2020-11-01] MEDS: potassium chloride ER 20 mEq Tablet 40 MEQ PO (08:43)
[2020-11-01] MEDS: azithromycin 500 MG in sodium chloride 0.9% 250 ML 250 MG IV (09:00)
--- NOTE | 2020-11-01 16:52 | PC.PT ---
PT note; patient demonstrates good safety awareness and abilities, returned demonstration of home exercise program, and ambulation distance 250 feet on room air maintained 95% oxygen saturation and greater, and verbalizes agreement to continue independently with home exercise program; discharge physical therapy.
[2020-11-01] MEDS: guaiFENesin-dextromethorphan UDC 10 mL PO (17:44)
--- NOTE | 2020-11-01 21:00 | PC.NURSE ---
Report called to Marleny BERGER. Patient packaged and transported with registered nurse cardiac to room 253-1
--- NOTE | 2020-11-01 21:54 | PC.NURSE ---
Pt was transported without incident via wheelchair with all belongings taken with pt. Pt was assisted to the bed and placed in a position of comfort. IV zosyn restarted with 9.7ml left in the infusion. Pt left with call light. Nurse notified of pt being in room. Paperwork left with charge nurse Marleny BERGER.
[2020-11-02] VITALS (8 sets, daily range): BP systolic 92–118; BP diastolic 50–74; PULSE 66–84; RESP 16–18; TEMP 36.4–36.9; O2SAT 93–98
[2020-11-02] MEDS: guaiFENesin-dextromethorphan UDC 10 mL PO ×2 (01:19→06:04)
[2020-11-02] MEDS: dilTIAZem 60 mg Tablet PO ×3 (01:31→15:32)
[2020-11-02] MEDS: piperacillin-tazobactam 3.375 GM in sodium chloride 0.9% (plus) 50 ML IV ×2 (01:31→09:34)
[2020-11-02 07:51] LABS: Basophils % 0.1 %; Eosinophils # 0.2 10^3/uL (0.0-0.8); Hematocrit 35.1 % (42.0-52.0); Hemoglobin 11.5 g/dL (11.7-16.6); Lymphocytes # 1.4 10^3/uL (0.8-4.8); Lymphocytes % 14.5 %; Mean Corpuscular HGB Conc 32.8 g/dL (30.0-36.0); Mean Corpuscular Hemoglobin 30.6 pg (28.0-34.0); Mean Corpuscular Volume 93.4 fL (80-94); Mean Platelet Volume 9.8 fL (7.4-10.4); Monocytes # 0.6 10^3/uL (0.2-0.9); Monocytes % 5.8 %; Neutrophils # 7.22 10^3/uL (1.8-7.7); Neutrophils % 73.8 %; Nucleated Red Blood Cells % 0 %; Platelet Count 539 10^3/cmm (130-400); Red Blood Count 3.76 10^6/uL (4.1-5.3); Red Cell Distribution Width 13.9 % (12.1-15.1); White Blood Count 9.8 10^3/uL (4.0-10.0)
[2020-11-02 08:27] LABS: Anion Gap 12.3 (5-19); Blood Urea Nitrogen 24 mg/dL (8-23); Calcium 7.2 mg/dL (8.5-10.5); Carbon Dioxide 24 mmol/L (22-29); Chloride 105 mmol/L (98-107); Glomerular Filtration Rate 60.2 mL/min (90-130); Glucose 86 mg/dL (65-115); Osmolality Calculated 287 mOsm/kg (285-295); Potassium 4.3 mmol/L (3.5-5.1); Sodium 137 mmol/L (136-145)
[2020-11-02 08:45] LABS: Slide Review Slide Review Perform
[2020-11-02] MEDS: potassium chloride ER 20 mEq Tablet 40 MEQ PO (09:33)
[2020-11-02] MEDS: apixaban 5 mg Tablet PO (09:34)
[2020-11-02] MEDS: famotidine 20 mg Tablet PO (09:34)
--- NOTE | 2020-11-02 11:40 | P.DS_ITS ---
Discharge Providers Date of Admission: 10/28/20 17:45 Date of Discharge: November 02, 2020 Attending Provider at Admission: Ti Burch MD Attending Provider at Discharge: Mimi Conner MD Consults: None Primary Care Provider: ALEJANDRINA Lopez Diagnoses at Discharge Discharge Diagnosis (1) Respiratory failure with hypoxia: Status: Acute Permanent problem details: -With noted evidence of right upper lobe pneumonia on chest x-ray and CT chest -COVID-19 rapid testing negative, PCR negative; d/c isolation precautions -d/c on azithromycin -leukocytosis resolved, weaned off supplemental oxygen, VSS -blood cx: negative -Legionella negative -repeat imaging shows some improvement in RUL pneumonia Qualifiers: Chronicity: acute Qualified Code(s): J96.01 - Acute respiratory failure with hypoxia (2) Heart failure: Status: Acute Permanent problem details: -noted elevated BNP -resume oral lasix -Echo: EF=65%, no RWMA, G2DD, mild MR, mild-moderate TR Qualifiers: Heart failure chronicity: acute Heart failure type: diastolic Qualified Code(s): I50.31 - Acute diastolic (congestive) heart failure (3) Sepsis: Status: Resolved Qualifiers: Acute respiratory failure type: with hypoxia Sepsis acute organ dys function status: with acute organ dysfunction Sepsis type: sepsis due to unspecified organism Severe sepsis acute organ dysfunction type: acute respiratory failure Severe sepsis shock status: without septic shock Qualified Code(s): A41.9 - Sepsis, unspecified organism; R65.20 - Severe sepsis without septic shock; J96.01 - Acute respiratory failure with hypoxia (4) Acute kidney injury superimposed on CKD: Status: Resolved (5) Atrial fibrillation with rapid ventricular response: Status: Acute Permanent problem details: -continue cardizem, Eliquis Other Information Additional DC diagnoses/information: -Transaminitis; could be hepatic congestion; negative hepatitis panel, [id number], US with noted slight liver enlargement, continue to trend LFTs, improving Reason for Visit Reason for Visit: SOB Hospital Course Hospital Course Patient was initially admitted to ICU secondary to significant respiratory distress, high oxygen requirement and clinical evidence of right upper lobe pneumonia. He was quite ill-appearing on initial admission and due to respiratory symptoms was tested for COVID-19. He was found to be positive both by rapid and PCR testing. He was treated with broad-spectrum IV antibiotics consisting of vancomycin, Zosyn and azithromycin. He had significant leukocytosis with initial white count greater than 30 as well as significant procalcitonin elevation, tachypnea, lactic acidosis, tachycardia and hypoxia thereby meeting criteria for sepsis. Blood cultures have been negative and Legionella was negative as well. With continued treatment he has improved significantly with noted resolution of hypoxia, ability to wean to room air, hemodynamic stability, resolution of lactic acidosis and leukocytosis, si gnificant improvement in procalcitonin. With clinical improvement he was transitioned to the medical floor for continued treatment. He did also present with atrial fibrillation with RVR requiring a Cardizem drip which when weaned was transitioned to oral Cardizem. He has been on anticoagulation with Eliquis which will be continued on discharge. Echo was done with ejection fraction of 65% and grade 2 diastolic dysfunction noted. Due to low normal blood pressure I did not add beta-akosua due to risk for hypotension. This may be a consideration in the future should he continue to require more optimal heart rate control though his heart rate has consistently been controlled here. He did have some acute renal impairment and some evidence of acute diastolic CHF exacerbation. Renal function likely worsened with initiation of diuresis as it has now improved when diuretics have been on hold. He is to resume low-dose Lasix on discharge. He will require appropriate follow-up with his primary care provider. He is counseled on need to seek medical attention immediately should his symptoms recur. He has been evaluated by physical therapy and has been ambulatory independently. He did initially require Laboy catheter placement due to significant respiratory distress. This has been discontinued and he has been able to void independently without difficulty. Physical Exam Const: COMMON NORMALS: no acute distress, patient oriented x3 and alert GENERAL APPEARANCE: cooperative and comfortable; not ill appearing ORIENTATION/CONSCIOUSNESS: Yes awake HENMT: COMMON NORMALS: normocephalic, atraumatic, hearing grossly normal bilaterally and moist oral mucous membranes HEAD & SCALP: normocephalic and atraumatic Eye: COMMON NORMALS: Equal, round and reactive pupils present, EOMs intact bilaterally and conjunctivae normal CONJUNCTIVA: Yes conjunctivae normal PUPIL: Yes Equal, round and reactive pupils present Neck/C-Spine: COMMON NORMALS: full ROM GENERAL: Yes normal visual inspection and Yes trachea midline Resp: COMMON NORMALS: normal respiratory effort, No retractions and No use of accessory muscles EFFORT & INSPECTION: Yes able to speak in complete sentences, Yes symmetric chest movement and No tachypneic AUSCULTATION: rhonchi right upper and diminished lung sounds OTHER: -on RA Cardio: COMMON NORMALS: regular rate, S1 normal heart sound present, S2 normal heart sound present and No murmurs present (Cardio) RATE: regular rate and tachycardic (intermittently) RHYTHM: abnormal rhythm irregularly irregular HEART SOUNDS: S1 normal heart sound present and S2 normal heart sound present OTHER: -more consistent rate control GI: COMMON NORMALS: Normal to inspection, nondistended, normoactive bowel sounds present, Soft to palpation and non-tender INSPECTION: Yes central obesity PALPATION: Yes Soft to palpation Extremity: COMMON NORMALS: normal to inspection, full ROM and no clubbing, cyanosis or edema; negative for no pedal edema Neuro: COMMON NORMALS: patient oriented x3, moves all extremities, no focal motor deficits and no sensory deficits noted SENSORIUM/ORIENTATION: Yes alert Psych: COMMON NORMALS: mental status grossly normal, Normal thought process present, cooperative, normal affect and speech normal SPEECH: Yes normal speech THOUGHT PROCESS: Normal thought process present Skin: COMMON NORMALS: no rashes or lesions noted, no jaundice, no petechiae and no mottling GENERAL SKIN EXAM: no rashes or lesions noted Urinary Catheter Management^: Laboy: Cath Placed During This Visit: yes Reason for Continuing Indwelling Catheter: Accurate Measurement of Urinary Output in Critically Ill Patients Urinary Catheter Date of Insertion: 10/28/20 Urinary Catheter Time of Insertion: 22:59 Discharge Data Data Completed and Pending: Completed Studies During Hospitalization Category Date Time Status CT chest wo con 7 1250 Routine Cat Scan 10/28/20 13:02 Completed XR chest 1V owen ble [id number] Routine Exams 11/01/20 08:39 Completed XR chest 1V owen ble [id number] Stat Exams 10/28/20 10:09 Completed CV echo complete* [id number] Routine Ultrasound 10/29/20 17:45 [place] liver [id number] Ro utine Ultrasound 10/30/20 07:00 Completed Labs from last 24 hours 11/02/20 11/02/20 11/02/20 07:25 07:25 07:25 WBC 9.8 RBC 3.76 L Hgb 11.5 L Hct 35.1 L MCV 93.4 MCH 30.6 MCHC 32.8 RDW 13.9 Plt Count 539 H MPV 9.8 Neut % (Auto) 73.8 Lymph % (Auto) 14.5 Ashley % (Auto) 5.8 Eos % (Auto) 2.0 Baso % (Auto) 0.1 Neut # (Auto) 7.22 Lymph # (Auto) 1.4 Ashley # (Auto) 0.6 Eos # (Auto) 0.2 Baso # (Auto) 0.0 Nucleated RBC % (a uto) 0 Nucleated RBCs # 0.0 Sodium 137 Potassium 4.3 Chloride 105 Carbon Dioxide 24 Anion Gap 12.3 BUN 24 H Creatinine 1.2 GFR Calculation 60.2 L Glucose 86 Calculated Osmolal ity 287 Calcium 7.2 L Procalcitonin 2.10 H Vitals: Last Vital Signs Temp 97.6 F 11/02/20 11:35 Pulse 84 11/02/20 11:35 Resp 17 11/02/20 11:35 BP 100/54 11/02/20 11:35 Pulse Ox 93 11/02/20 11:35 Discharge Plan Discharge Patient Disposition: Home Condition: Stable Prescriptions: New Eliquis 5 mg Tablet 5 mg PO BID 30 Days Qty: 60 RF: 0 Lasix 20 mg tablet 20 mg PO BID Qty: 60 RF: 0 azithromycin 500 mg tablet 500 mg PO DAILY 5 Days Qty: 5 RF: 0 Klor-Con M20 20 mEq Tablet,Er Particles/Crystals 20 meq PO DAILY Qty: 30 RF: 0 Thera 400 mcg Tablet 1 tab PO DAILY Qty: 30 RF: 0 diltiazem HCl 120 mg capsule,extended release 12 hr 120 mg PO BID 30 Days Qty: 60 RF: 0 Discontinued multivitamin Tablet 1 tab PO DAILY PRN (Reason: unknown) RF: 0 Discharge Orders: Discharge Order (Routine); Ordered 11/02/20 Ordered By: Mimi Conner Referrals: JASON Zhao, SERVER SERVICE ASSISTANT [Primary Care Provider] - 11/08/20 1:20 pm Discharge Diet: Advance as tolerated and Cardiac Discharge Activity: Increase activity as tolerated and As per PT/OT instructions Discharge Attestations Time Spent in Discharge Care*: greater than 30 min Specific Discharge Activities: educating patient, discussing with pcp/other providers, discussing with top case assembler/social workers/dc planners, documenting/other paperwork and evaluating patient/reviewing data Status at Discharge: Cognitive status at discharge: cognitively intact , Behavioral status at discharge: cooperative and independent in ADL's , Overall status at discharge: patient is progressing back to baseline Quality Metrics Clinical Quality Measures During this hospital stay, did patient experience: None Coding Level of Care Code Acute Entry Rep for g Fwd Exam Comprehensive Diagnoses Respiratory failure with hypoxia J96.01 Chronicity: acute Heart failure I50.31 Heart failure chronicity: acute Heart failure type: diastolic Sepsis A41.9; R65.20; J96.01 Acute respiratory failure type: with hypoxia Sepsis acute organ dysfunction status: with acute organ dysfunction Sepsis type: sepsis due to unspecified organism Severe sepsis acute organ dysfunction type: acute respiratory failure Severe sepsis shock status: without septic shock Acute kidney injury superimposed on CKD N17.9; N18.9 Atrial fibrillation with rapid ventricular response I48.91
--- NOTE | 2020-11-02 12:00 | PC.SOCIAL ---
Im follow up provided and explained. Pt verbalized understanding.
== END 2020-11-02 17:11 | disposition home or self-care (01) | DRG 871 ==
LOC: ER 12:54 → ER IP 16:43 → ICU 22:30 → CSU 10-31 16:17 → MEDSURG 11-01 21:55
PROVIDERS: Emergency Medicine; Physician Assistant; Admitting Provider Internal Medicine; Emergency Provider Emergency Medicine; PCP Nurse Practitioner Family; Visit Provider Family Medicine
DX: A41.9 Sepsis, unspecified organism (principal); J18.9 Pneumonia, unspecified organism; J96.01 Acute respiratory failure with hypoxia; I50.31 Acute diastolic (congestive) heart failure; E87.2 Acidosis; B02.29 Other postherpetic nervous system involvement; N17.9 Acute kidney failure, unspecified; R65.20 Severe sepsis without septic shock; I48.91 Unspecified atrial fibrillation; Z85.038 Personal history of other malignant neoplasm of large intestine; N18.2 Chronic kidney disease, stage 2 (mild)
CPT/HCPCS: 12345; 36415; 36600; 51702; 71045; 71250; 76705; 80048; 80053; 80061; 80074; 80202; 81001; 82550; 82803; 83605; 83615; 83735; 83880; 84145; 84443; 84484; 85007; 85025; 85378; 85384; 85610; 85730; 86140; 87040; 87086; 87426; 87449; 87635; 87804; 93005; 93306; 97110; 97116; 97162; 97530; 99284; J0456; J1644; J1940; J1956; J2543; J3370; J3490; J7030; J7050

== ENCOUNTER → 2020-11-08 11:33 | Outpatient (BNVA) | payer MEDICARE, MEDICAID, SELFPAY | PROVIDERS: PCP Nurse Practitioner Family; Visit Provider Nurse Practitioner Family | DX: I50.31 Acute diastolic (congestive) heart failure (principal); Z79.899 Other long term (current) drug therapy | CPT/HCPCS: 80053; 81003; 83036; 85025 ==

== ENCOUNTER → 2020-11-19 11:33 | Outpatient (BNVA) | payer MEDICARE, MEDICAID, SELFPAY | PROVIDERS: PCP Nurse Practitioner Family; Visit Provider Nurse Practitioner Family | DX: I50.31 Acute diastolic (congestive) heart failure (principal); R21 Rash and other nonspecific skin eruption; B02.9 Zoster without complications | CPT/HCPCS: 80053; 81003; 85025 ==

== ENCOUNTER → 2022-09-26 10:35 | Outpatient (BNVA) | payer MEDICARE, MEDICAID, SELFPAY | PROVIDERS: PCP Nurse Practitioner Family; Visit Provider Nurse Practitioner | DX: R69 Illness, unspecified (principal); J10.1 Influenza due to other identified influenza virus with other respiratory manifestations | CPT/HCPCS: 87400 ==

== ENCOUNTER 2022-09-27 15:43 | Emergency (ER) | payer MEDICARE, MEDICAID, SELFPAY ==
[2022-09-27 15:55] VITALS: BP 138/82; PULSE 80; RESP 16; TEMP 36.7; O2SAT 97
--- NOTE | 2022-09-27 16:21 | ED_ITS ---
Documented by User: Nika Mcfarland 09/27/22 16:52 HPI - Extremity Problem General: Chief complaint: Extremity Injury, Upper Stated complaint: Left shoulder injury Time Seen by Provider: 09/27/22 16:22 History of Present Illness: left shoulder pain, injury Review of Systems General: Reports: 10 or more systems reviewed and unremarkable except in HPI and below Musc: Reports: extremity pain (left shoulder ), joint pain and limited range of motion PFSH ED PFSH: Medical History Atrial fibrillation with rapid ventricular response -continue cardizem, Eliquis Heart failure -noted elevated BNP -resume oral lasix -Echo: EF=65%, no RWMA, G2DD, mild MR, mild-moderate TR History of colon cancer Medication management Postherpetic neuralgia Surgical History History of colon resection Social History Smoking and tobacco status: never smoked Second hand smoke exposure: No Smoking risk assessment/counseling performed?: No Alcohol intake: never Desire information about alcohol rehabilitation?: No Counseling given: No Physical Exam Const: COMMON NORMALS: no acute distress, patient oriented x3, no limitations and alert GENERAL APPEARANCE: cooperative and comfortable ORIENTATION/CONSCIOUSNESS: Yes awake, Yes oriented to person, Yes oriented to place and Yes oriented to time HENMT: COMMON NORMALS: normocephalic, atraumatic, external ears normal, EAC's normal, TM's normal bilaterally and Normal external nose present HEAD & SCALP: normal to inspection, normocephalic and atraumatic FACE & SINUS: normal facial exam, sinuses nontender and face symmetric NOSE: Normal external nose present, Normal nares present and No nasal discharge present EXTERNAL EAR: Yes external ears normal EXTERNAL AUDITORY CANAL: EAC's normal TYMPANIC MEMBRANE: TM's normal bilaterally MOUTH: Normal oral and palatal mucosa present, lip normal and tongue normal THROAT: posterior oropharynx normal, tonsils normal and uvula midline Eye: COMMON NORMALS: Equal, round and reactive pupils present, EOMs intact bilaterally and conjunctivae normal GENERAL EYE: appearance normal, both eyes and all related structures and normal light reflex EYELID: eyelids normal CONJUNCTIVA: Yes conjunctivae normal PUPIL: Yes Equal, round and reactive pupils present EOM: Yes EOM abnormal DIRECT OPHTHALMOSCOPY: Yes normal light reflex Neck/C-Spine: COMMON NORMALS: full ROM, no lymphadenopathy, supple, no meningeal signs, no JVD and Thyroid normal GENERAL: Yes normal visual inspection THYROID: Thyroid normal CERVICAL SPINE: Yes cervical ROM normal and Yes normal cervical lordosis Lymph: LYMPHATIC: no lymphadenopathy noted Chest: COMMONS NORMALS: normal inspection of the chest and normal palpation of entire chest wall Resp: COMMON NORMALS: normal respiratory effort, No retractions and clear to auscultation bilaterally AUSCULTATION: clear to auscultation bilaterally Cardio: COMMON NORMALS: no JVD, regular rate, regular rhythm, S1 normal heart sound present, S2 normal heart sound present, No gallops present (Cardio), No clicks present (Cardio), No murmurs present (Cardio), No rub (Cardio) and Peripheral pulses 2+ throughout RATE: regular rate RHYTHM: regular rhythm HEART SOUNDS: S1 normal heart sound present and S2 normal heart sound present PERIPHERAL PULSES: Peripheral pulses 2+ throughout GI: COMMON NORMALS: Normal to inspection, nondistended, normoactive bowel sounds present, Soft to palpation, non-tender and no masses PALPATION: Yes Soft to palpation : COMMON NORMALS: Yes no CVA tenderness BLADDER/KIDNEY EXAM: Yes no CVA tenderness Back/Pelvis: COMMON NORMALS: no CVA tenderness, thoracic and lumbar spine normal to inspection, no thoracic nor lumbar tenderness and thoraco-lumbar ROM normal Extremity: COMMON NORMALS: capillary refill normal, no joint enlargement, no clubbing, cyanosis or edema, no calf tenderness and no pedal edema GENERAL: Yes normal exam except as noted Neuro: COMMON NORMALS: patient oriented x3, moves all extremities, no focal motor deficits, no sensory deficits noted and gait normal SENSORIUM/ORIENTATION: Yes alert, Yes oriented to person, Yes oriented to place and Yes oriented to time MENINGEAL SIGNS: Yes no meningeal signs Psych: COMMON NORMALS: mental status grossly normal, Normal thought process present, cooperative, normal affect, speech normal and activity/motor behavior normal SPEECH: Yes normal speech THOUGHT PROCESS: Normal thought process present Skin: COMMON NORMALS: no rashes or lesions noted, no wounds and turgor normal GENERAL SKIN EXAM: no rashes or lesions noted and turgor normal Course ED course: Left shoulder pain and injury after fall. Pt has hx of shoulder surgery and recently he fell outside. He is unable to lift his arm at this time. He states he was told by his surgeon he may need surgery again. Xrays ordered and pain meds. Vital Signs: Vital signs: Vital Signs Temperature 98.0 F 09/27/22 15:55 Pulse Rate 86 09/27/22 17:25 Respiratory Rate 16 09/27/22 17:25 Blood Pressure 138/82 09/27/22 15:55 Pulse Oximetry 97 09/27/22 17:25 MDM - Extremity (Nontraumatic) Medical Decision Making Care transferred to Satinder Phan NP Lab Data Radiology Impressions Shoulder X-Ray 09/27/22 16:39 IMPRESSION: No acute findings. Discharge Plan Discharge Patient Disposition: Home Clinical Impression: Left shoulder pain Qualifiers: Chronicity: unspecified Qualified Code(s): M25.512 - Pain in left shoulder Condition: Stable Prescriptions: New celecoxib 100 mg capsule 100 mg PO BID Qty: 20 0RF hydrocodone-acetaminophen 5-325 mg tablet 1 tab PO Q8H PRN (Reason: pain (scale score 7-10)) Qty: 7 0RF No Action loratadine [Claritin] 10 mg tablet 10 mg PO DAILY 30 Days Qty: 30 0RF oseltamivir [Tamiflu] 75 mg capsule 75 mg PO BID 5 Days Qty: 10 0RF Lasix 20 mg tablet 20 mg PO BID Qty: 60 0RF Klor-Con M20 20 mEq Tablet,Er Particles/Crystals 20 meq PO DAILY Qty: 30 0RF Thera 400 mcg Tablet 1 tab PO DAILY Qty: 30 0RF Discharge Orders: Discharge ED (Routine); Ordered 09/27/22 Ordered By: Stan Phan Referrals: JASON Zhao, CARDIOLOGY CLINICAL NURSE SPECIALIST [Primary Care Provider] - Discharge Diet: Usual diet Discharge Activity: Increase activity as tolerated Patient Instructions: Shoulder Pain (ED) Activity Restrictions/Additional Instructions: Activity as tolerated. Gentle stretching and range of motion exercises. Follow-up with primary care in 3 to 5 days. Return to emergency department for new concerns. Sign Out Sign Out Data: Patient Sign Out occurred on 09/27/22 at 16:55. Patient's care was discussed, and care was transferred from to Stan Phan. Coding Level of Care Code ED Arresting Gear Operator for Chg Fwd Exam Comprehensive Documented by User: ALEJANDRINA Arreola 09/27/22 17:50 HPI - Extremity Problem General: Chief complaint: Extremity Injury, Upper Stated complaint: Left shoulder injury Time Seen by Provider: 09/27/22 16:22 PFSH ED PFSH: Medical History Atrial fibrillation with rapid ventricular response -continue cardizem, Eliquis Heart failure -noted elevated BNP -resume oral lasix -Echo: EF=65%, no RWMA, G2DD, mild MR, mild-moderate TR History of colon cancer Medication management Postherpetic neuralgia Surgical History History of colon resection Social History Smoking and tobacco status: never smoked Second hand smoke exposure: No Smoking risk assessment/counseling performed?: No Alcohol intake: never Desire information about alcohol rehabilitation?: No Counseling given: No Course Vital Signs: Vital signs: Vital Signs Temperature 98.0 F 09/27/22 15:55 Pulse Rate 86 09/27/22 17:25 Respiratory Rate 16 09/27/22 17:25 Blood Pressure 138/82 09/27/22 15:55 Pulse Oximetry 97 09/27/22 17:25 MDM - Extremity (Nontraumatic) Medical Decision Making Care transferred to Satinder Phan NP Patient came in today for complaints of injury to the left shoulder. Patient reports tripping and falling and landing on his left shoulder and now has reduced range of motion and discomfort that started 2 days ago. On exam patient has tenderness to the anterior left shoulder. Patient does have a history of a rotator cuff repair to the shoulder. Differential diagnosis includes fracture, sprain, contusion. X-ray notes no acute abnormality. Reviewed exam with patient with recommendations for treatment and follow-up. 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 Patient reported understanding agreed to plan. Lab Data Radiology Impressions Shoulder X-Ray 09/27/22 16:39 IMPRESSION: No acute findings. Discharge Plan Discharge Patient Disposition: Home Clinical Impression: Left shoulder pain Qualifiers: Chronicity: unspecified Qualified Code(s): M25.512 - Pain in left shoulder Condition: Stable Prescriptions: New celecoxib 100 mg capsule 100 mg PO BID Qty: 20 0RF hydrocodone-acetaminophen 5-325 mg tablet 1 tab PO Q8H PRN (Reason: pain (scale score 7-10)) Qty: 7 0RF No Action loratadine [Claritin] 10 mg tablet 10 mg PO DAILY 30 Days Qty: 30 0RF oseltamivir [Tamiflu] 75 mg capsule 75 mg PO BID 5 Days Qty: 10 0RF Lasix 20 mg tablet 20 mg PO BID Qty: 60 0RF Klor-Con M20 20 mEq Tablet,Er Particles/Crystals 20 meq PO DAILY Qty: 30 0RF Thera 400 mcg Tablet 1 tab PO DAILY Qty: 30 0RF Discharge Orders: Discharge ED (Routine); Ordered 09/27/22 Ordered By: Stan Phan Referrals: JASON Zhao, CARDIOLOGY CLINICAL NURSE SPECIALIST [Primary Care Provider] - Discharge Diet: Usual diet Discharge Activity: Increase activity as tolerated Patient Instructions: Shoulder Pain (ED) Activity Restrictions/Additional Instructions: Activity as tolerated. Gentle stretching and range of motion exercises. Follow-up with primary care in 3 to 5 days. Return to emergency department for new concerns. Sign Out Sign Out Data: Patient Sign Out occurred on 09/27/22 at 16:55. Patient's care was discussed, and care was transferred from to Stan Phan. Coding Level of Care Code ED Arresting Gear Operator for Codi Fwdinora Exam Comprehensive
--- NOTE | 2022-09-27 16:39 | XRR_ITS ---
PROCEDURE INFORMATION: Exam: XR Left Shoulder Exam date and time: 09/27/2022 4:46 PM Age: 72 years old Clinical indication: Injury or trauma; Fall; Blunt trauma (contusions or hematomas); Shoulder; Left TECHNIQUE: Imaging protocol: Radiologic exam of the Left shoulder. Views: 2 or more views. COMPARISON: CR XR chest 1V portable 20201 11/01/2020 8:46 AM FINDINGS: Bones/joints: Evans in the left glenoid. Mild degenerative changes of the AC joint. The bones are intact and in normal alignment. Soft tissues: Normal. XR/XR shoulder LT min 2V* [id number] IMPRESSION: No acute findings.
[2022-09-27] MEDS: ketorolac 30 mg/mL INJ IM (17:10)
[2022-09-27] MEDS: orphenadrine 30 mg/mL Inj 2 mL 60 MG IM (17:10)
[2022-09-27 17:25] VITALS: PULSE 86; RESP 16; O2SAT 97
== END 2022-09-27 17:26 | disposition home or self-care (01) ==
PROVIDERS: Emergency Provider Nurse Practitioner Family; PCP Nurse Practitioner Family
DX: M25.512 Pain in left shoulder (principal); I50.9 Heart failure, unspecified; Z85.038 Personal history of other malignant neoplasm of large intestine
CPT/HCPCS: 73030; 96372; 99284; J1885; J2360

== ENCOUNTER → 2023-06-15 11:45 | Outpatient (BNVA) | payer MEDICARE, MEDICAID, SELFPAY | PROVIDERS: PCP Nurse Practitioner; Visit Provider Nurse Practitioner | DX: K92.1 Melena (principal); R10.9 Unspecified abdominal pain; Z85.038 Personal history of other malignant neoplasm of large intestine | CPT/HCPCS: 85025 ==

== ENCOUNTER 2023-10-16 12:47 | Emergency (ER) | payer MEDICARE, MEDICAID, SELFPAY ==
[2023-10-16 12:56] VITALS: BP 171/92; PULSE 72; TEMP 36.6; O2SAT 98
--- NOTE | 2023-10-16 13:15 | XRR_ITS ---
PROCEDURE INFORMATION: Exam: XR Left Hand Exam date and time: 10/16/2023 1:46 PM Age: 73 years old Clinical indication: Pain and injury or trauma; Fall; Swelling; Hand; Left; Blunt trauma (contusions or hematomas); Injury date: 10 days ago; Additional info: 10 days post fall with swelling TECHNIQUE: Imaging protocol: Radiologic exam of the left hand. Views: 3 or more views. COMPARISON: No relevant prior studies available. FINDINGS: Bones/joints: No fracture or dislocation. There is minimal degenerative changes involving the IP joints, manifested by joint space narrowing and small periarticular osteophytes. Soft tissues: Normal. XR/XR hand LT min 3V* [id number] IMPRESSION: No acute findings.
--- NOTE | 2023-10-16 13:16 | ED_ITS ---
HPI - Extremity Problem 2 General: Chief complaint: Extremity Injury, Upper Stated complaint: hand infection Time Seen by Provider: 10/16/23 12:59 Source: patient Mode of arrival: EMS Limitations: no limitations History of Present Illness: This patient was referred from a local primary care clinic because of concerns about left hand injury. Patient states that approximately 10 days ago he was carrying firewood and to the house and on his way into the house tripped over the threshold and fell forward. He states his hand is abraded by the door frame as well as falling. He states he did not hit his head or suffer any other injury. He states that he continues to have some swelling and minimal redness to the dorsum of his left hand. He states he also noted approximately 2 days or thereabouts after carrying the firewood and he developed a rash on both he has left arm right arm as well as his neck and very upper trunk. He denies any fevers or chills. He denies any known foreign body. He is unaware of his last tetanus shot. He states that he was seen in a clinic yesterday and was given an injection of antibiotics and a prescription of antibiotics as well. He was also given a prescription of steroids the latter to he has not taken any yet. Again he denies fevers chills or other constitutional complaints other than he was sick at his stomach this morning. He is right-handed MD Complaint: extremity swelling Location: left and upper extremity Associated symptoms: Reports rash; Deny fever(s) Review of Systems 2 Const: Denies: fever(s) or chills Eyes: Denies: change in vision ENMT: Denies: throat pain, odynophagia, nasal discharge or nasal congestion Card: Denies: palpitations, syncope or pre-syncope Resp: Denies: dyspnea, productive cough or non-productive cough GI: Reports: nausea; Denies: abdominal pain or diarrhea : Denies: flank pain, difficulty urinating, dysuria or urinary frequency Musc: Denies: neck pain Skin/Breast: Reports: rash Neuro: Denies: headache(s), numbness in extremities or weakness in extremities PFSH ED 2 PFSH: Medical History Allergic reaction Medication management Heart failure -noted elevated BNP -resume oral lasix -Echo: EF=65%, no RWMA, G2DD, mild MR, mild-moderate TR Atrial fibrillation with rapid ventricular response -continue cardizem, Eliquis Postherpetic neuralgia History of colon cancer Surgical History History of colon resection Social History Smoking and tobacco/nicotine status: never used tobacco/nicotine Second hand smoke exposure: No Alcohol intake: never Physical Exam 2 Narrative: EXAM NARRATIVE: He is alert no acute distress. Makes good eye contact and answers questions appropriately in a goal-directed fashion. Const: COMMON NORMALS: no acute distress, patient oriented x3 and alert G ENERAL APPEARANCE: cooperative and comfortable NUTRITIONAL APPEARANCE: o verweight HENMT: COMMON NORMALS: normocephalic, Normal nasal mucous membranes and turbinates present, moist oral mucous membranes and oropharynx normal HEAD & SCALP: normocephalic NOSE: Normal nasal mucous membranes and turbinates present Eye: COMMON NORMALS: Equal, round and reactive pupils present, EOMs intact bilaterally, conjunctivae normal and normal visual carpenter by confrontation C ONJUNCTIVA: Yes conjunctivae normal PUPIL: Yes Equal, round and reactive pupils present Neck/C-Spine: COMMON NORMALS: full ROM, no lymphadenopathy, supple and no JVD Lymph: LYMPHATIC: no lymphadenopathy noted Chest: COMMONS NORMALS: normal inspection of the chest Resp: COMMON NORMALS: normal respiratory effort, No use of accessory muscles and clear to auscultation bilaterally AUSCULTATION: clear to auscultation bilaterally Cardio: COMMON NORMALS: no JVD, regular rate, regular rhythm, No murmurs present (Cardio) and Peripheral pulses 2+ throughout RATE: regular rate R HYTHM: regular rhythm PERIPHERAL PULSES: Peripheral pulses 2+ throughout GI: COMMON NORMALS: Normal to inspection, nondistended, normoactive bowel sounds present, Soft to palpation and non-tender PALPATION: Yes Soft to palpation : COMMON NORMALS: Yes no CVA tenderness BLADDER/KIDNEY EXAM: Yes no CVA tenderness Back/Pelvis: COMMON NORMALS: no CVA tenderness, thoracic and lumbar spine normal to inspection, no thoracic nor lumbar tenderness, thoraco-lumbar ROM normal and straight leg raise negative bilaterally Extremity: COMMON NORMALS: capillary refill normal and no calf tenderness L EFT UPPER EXTREMITY: Yes hand & digits Left hand and digits: Yes neurovascular exam (Normal with normal sensation, all tendon function intact) OTHER: Examination with attention to his left upper extremity reveals areas of superficial abrasion to the dorsum of the left hand. There are some minimal surrounding erythema to these abraded areas but no drainage. He has normal range of motion at the wrist as well as the MCP PIP and DIP joints. He has intact extensor function against resistance as well as flexion. He has no deformity. He does have some mild soft tissue swelling of the dorsum of the hand. Approximately has no evidence of lymphangitis. He has normal range of motion at the elbow joint as well as at the shoulder joint. There is no axillary lymphadenopathy noted. Neuro: COMMON NORMALS: patient oriented x3, moves all extremities, no focal motor deficits and no sensory deficits noted SENSORIUM/ORIENTATION: Yes alert Skin: NARRATIVE SKIN EXAM: His skin examination was notable for areas of the left dorsum of the hand and extending somewhat up into the left volar forearm some hypertrophy of the skin with some macular lesions which are raised and rough. He also has similar- appearing areas on the volar portion of his right forearm. There is a few scattered similar lesions on his upper anterior chest. There is no pustules; serpiginous erythema etc. TRAUMA: abrasion Course 2 Reevaluation(s): Reevaluation #1: Patient remains clinically stable. Vital signs are all remain in normal limits without any evidence of tachycardia, fever or other concerning findings. No change in his clinical examination. I reviewed current findings and implications and plan of care with the patient. Currently stable for outpatient management. Time: 14:55 Vital Signs: Vital signs: Vital Signs Temperature 97.8 F 10/16/23 12:56 Pulse Rate 75 10/16/23 14:30 Blood Pressure 155/101 10/16/23 14:30 Pulse Oximetry 95 10/16/23 14:30 Oxygen Delivery Me thod Room Air 10/16/23 14:30 MDM - Extremity (Nontraumatic) Medical Decision Making Patient was referred to the emergency department because of concerns about possible a significant infection of his left extremity status post a fall at home. He apparently developed a rash of the volar forearms and upper chest approximately 2 days after carrying the firewood in which was associated with his fall. He had no other constitutional symptoms such as fever elevated heart rate tachypnea etc. There was some concerns raised at his primary care office whether he may have a significant infection and possible sepsis however at arrival in the emergency department he was normotensive, normal heart rate, normal respiratory rate. No clinical signs to suggest profound infection or sepsis. Clinical picture suggests some local infection doubt any neurovascular compromise I suspect some concomitant contact dermatitis given he was carrying firewood which may have had either sap and/or other plant matter on the bark of the wood. Would not proceed with updating his tetanus, check a plain film for any evidence of radiographic foreign bodies in screening laboratories. Subsequent radiographs were negative for any fracture, radiopaque foreign bodies etc. Been clinically stable. His CRP was reassuring. Sed rate was slightly elevated as well as his white blood count but both of which are nonspecific and certainly in his clinical picture do not suggest a overwhelming infection, sepsis etc. I still believe that this is a localized infection with concomitant contact dermatitis and will continue the therapy as planned by his outpatient clinic. Given a dose of Ancef as well as a dose of Decadron while in the emergency department. I reviewed expected course and return precautions in detail. He was very appreciative of care. He also requested a referral for his cataract of his right eye which I sent via social media marketer to arrange ophthalmology follow-up. Lab Data I reviewed the patient's lab results. 10/16/23 13:33 10/16/23 13:33 Radiology Impressions Hand X-Ray 10/16/23 13:15 IMPRESSION: No acute findings. Laboratory Results WBC 14.68 10^3/uL (3.29-11.43) H 10/16/23 13:33 RBC 4.48 10^6/uL (3.85-5.65) 10/16/23 13:33 Hgb 13.80 g/dL (11.27-16.99) 10/16/23 13:33 Hct 40.7 % (37-53) 10/16/23 13:33 MCV 90.8 fl (82-101) 10/16/23 13:33 MCH 30.8 pg (27-33) 10/16/23 13:33 MCHC 33.9 g/dL (30-55) 10/16/23 13:33 RDW 12.8 % (12.1-15.1) 10/16/23 13:33 Plt Count 279 10^3/cmm (157-399) 10/16/23 13:33 MPV 10.0 fL (7.4-10.4) 10/16/23 13:33 Neut % (Auto) 85.5 % 10/16/23 13:33 Lymph % (Auto) 9.0 % 10/16/23 13:33 [place] % (Auto) 4.9 % 10/16/23 13:33 Eos % (Auto) 0.0 % 10/16/23 13:33 Baso % (Auto) 0.1 % 10/16/23 13:33 Neut # (Auto) 12.55 10^3/uL (1.8-7.7) H 10/16/23 13:33 Lymph # (Auto) 1.3 10^3/uL (0.8-4.8) 10/16/23 13:33 [place] # (Auto) 0.7 10^3/uL (0.2-0.9) 10/16/23 13:33 Eos # (Auto) 0.0 10^3/uL (0.0-0.8) 10/16/23 13:33 Baso # (Auto) 0.0 10^3/uL (0.0-0.1) 10/16/23 13:33 Nucleated RBC % (auto) 0 % 10/16/23 13:33 Nucleated RBCs # 0.0 /100WBC 10/16/23 13:33 ESR 29 mm/hr (0-10) H 10/16/23 13:33 Sodium 140 mmol/L (136-145) 10/16/23 13:33 Potassium 4.7 mmol/L (3.5-5.1) 10/16/23 13:33 Chloride 108 mmol/L (98-107) H 10/16/23 13:33 Carbon Dioxide 20 mmol/L (22-29) L 10/16/23 13:33 Anion Gap 16.7 (5-19) 10/16/23 13:33 BUN 16 mg/dL (8-23) 10/16/23 13:33 Creatinine 0.9 mg/dL (0.7-1.2) 10/16/23 13:33 GFR Calculation Not Reportable 10/16/23 13:33 Glucose 114 mg/dL (65-115) 10/16/23 13:33 Calculated Osmolality 292 mOsm/kg (285-295) 10/16/23 13:33 Calcium 9.2 mg/dL (8.5-10.5) 10/16/23 13:33 C-Reactive Protein 3.0 mg/L (0.0-4.9) 10/16/23 13:33 All radiology interpretation(s) finalized by discharge Discharge Plan Discharge Patient Disposition: Home Clinical Impression: Contact dermatitis Qualifiers: Contact dermatitis type: unspecified Contact dermatitis trigger: non-food plants Qualified Code(s): L25.5 - Unspecified contact dermatitis due to plants, except food Cellulitis Qualifiers: Site of cellulitis: extremity Site of cellulitis of extremity: upper extremity Laterality: left Qualified Code(s): L03.114 - Cellulitis of left upper limb Condition: Stable Prescriptions: No Action doxycycline hyclate 100 mg capsule 100 mg PO BID 10 Days Qty: 20 0RF methylprednisolone [Medrol (Sean)] 4 mg tablets,dose pack See Rx Instructions PO PER PKG DIR Qty: 21 0RF Rx Instructions: PO PER PKG DIR Discharge Orders: Discharge ED (Routine); Ordered 10/16/23 Ordered By: Ankit Rosario Referrals: Roslyn Stafford FNP [Primary Care Provider] - Discharge Diet: Usual diet Discharge Activity: Increase activity as tolerated Patient Instructions: Opioid Safety, Pain Management Activity Restrictions/Additional Instructions: As we discussed we think that you have a localized infection of your left hand which should respond to the medication. You also have what appears to be a dermatitis or skin rash likely related to contact with the wood and prior to hap's sap or plant oils when you were bringing the wood into the house. At this time he does not suggest a serious or overwhelming infection. We recommend you continue the medications that were prescribed by your clinic. We have also made a referral to the eye doctor to evaluate your cataract. If you have worsening symptoms, develop fever, cannot tolerate the medication or have any other concerns return to this or the nearest emergency department. Coding Level of Care Code ED Distribution Collection Operator for Codi Valente
[2023-10-16 14:02] LABS: Basophils % 0.1 %; Hematocrit 40.7 % (37-53); Lymphocytes # 1.3 10^3/uL (0.8-4.8); Mean Corpuscular HGB Conc 33.9 g/dL (30-55); Mean Corpuscular Hemoglobin 30.8 pg (27-33); Mean Corpuscular Volume 90.8 fl (82-101); Monocytes # 0.7 10^3/uL (0.2-0.9); Monocytes % 4.9 %; Neutrophils # 12.55 10^3/uL (1.8-7.7); Neutrophils % 85.5 %; Nucleated Red Blood Cells % 0 %; Platelet Count 279 10^3/cmm (157-399); Red Blood Count 4.48 10^6/uL (3.85-5.65); Red Cell Distribution Width 12.8 % (12.1-15.1); White Blood Count 14.68 10^3/uL (3.29-11.43)
[2023-10-16] MEDS: tetanus-dipt-pertussis 0.5 mL SDV IM (14:10)
[2023-10-16 14:15] LABS: Erythrocyte Sedimentation Rate 29 mm/hr (0-10)
[2023-10-16 14:21] LABS: Anion Gap 16.7 (5-19); Blood Urea Nitrogen 16 mg/dL (8-23); Calcium 9.2 mg/dL (8.5-10.5); Carbon Dioxide 20 mmol/L (22-29); Chloride 108 mmol/L (98-107); Glucose 114 mg/dL (65-115); Osmolality Calculated 292 mOsm/kg (285-295); Potassium 4.7 mmol/L (3.5-5.1); Sodium 140 mmol/L (136-145)
[2023-10-16 14:30] VITALS: BP 155/101; PULSE 75; O2SAT 95
[2023-10-16] MEDS: dexamethasone 10 mg/mL INJ IVP (15:00)
[2023-10-16] MEDS: ceFAZolin 1,000 MG in sodium chloride 0.9% (plus) 50 ML 100 MG IV (15:00)
--- NOTE | 2023-10-20 08:34 | DCPLANNER ---
Referral emailed to [facility]
== END 2023-10-16 15:39 | disposition home or self-care (01) ==
PROVIDERS: Emergency Provider Emergency Medicine; PCP Nurse Practitioner
DX: L25.5 Unspecified contact dermatitis due to plants, except food (principal); L03.114 Cellulitis of left upper limb; Z85.038 Personal history of other malignant neoplasm of large intestine; Z23 Encounter for immunization
CPT/HCPCS: 36415; 73130; 80048; 85025; 85651; 86140; 90715; 96374; 96375; 99284; J0690; J1100

== ENCOUNTER 2025-02-09 14:12 | Outpatient (CLI) | payer MEDICARE, MEDICAID, SELFPAY ==
[2025-02-09 14:58] LABS: Basophils # 0.1 10^3/uL (0.0-0.1); Basophils % 0.4 %; Eosinophils # 0.1 10^3/uL (0.0-0.8); Eosinophils % 0.8 %; Hematocrit 42.8 % (37-53); Lymphocytes # 2.5 10^3/uL (0.8-4.8); Lymphocytes % 19.2 %; Mean Corpuscular HGB Conc 32.9 g/dL (30-55); Mean Corpuscular Hemoglobin 31.2 pg (27-33); Mean Corpuscular Volume 94.7 fl (82-101); Mean Platelet Volume 9.8 fL (7.4-10.4); Monocytes % 7.7 %; Neutrophils # 9.34 10^3/uL (1.8-7.7); Neutrophils % 71.5 %; Nucleated Red Blood Cells % 0 %; Platelet Count 292 10^3/cmm (157-399); Red Blood Count 4.52 10^6/uL (3.85-5.65); Red Cell Distribution Width 13.6 % (12.1-15.1); White Blood Count 13.07 10^3/uL (3.29-11.43)
[2025-02-09 15:00] LABS: Erythrocyte Sedimentation Rate 7 mm/hr (0-10)
[2025-02-09 15:24] LABS: Alanine Aminotransferase 25 U/L (0-41); Albumin Level 4.2 g/dL (3.5-5.2); Alkaline Phosphatase 78 U/L (40-130); Anion Gap 16.9 (5-19); Aspartate Amino Transferase 21 U/L (0-40); Blood Urea Nitrogen 20 mg/dL (8-23); Calcium 8.8 mg/dL (8.5-10.5); Carbon Dioxide 24 mmol/L (22-29); Chloride 105 mmol/L (98-107); Globulin 3.2 g/dL (1.3-4.6); Glucose 84 mg/dL (65-115); Osmolality Calculated 296 mOsm/kg (285-295); Potassium 3.9 mmol/L (3.5-5.1); Sodium 142 mmol/L (136-145); Total Bilirubin 0.2 mg/dL (0.15-1.2); Total Protein 7.4 g/dL (6.6-8.7)
[2025-02-10 16:00] LABS: Anti-Nuclear Antibody Screen NEGATIVE (NEGATIVE)
== END 2025-02-09 14:13 | disposition home or self-care (01) ==
LOC: LAB 14:14
PROVIDERS: PCP Nurse Practitioner; Visit Provider Dermatology
DX: L53.8 Other specified erythematous conditions (principal)
CPT/HCPCS: 36415; 80053; 85025; 85651; 86038; 86140

== ENCOUNTER → 2025-02-21 11:22 | Outpatient (BNVA) | payer MEDICARE, MEDICAID, SELFPAY | PROVIDERS: PCP Nurse Practitioner Family; Visit Provider Dermatology | DX: L27.0 Generalized skin eruption due to drugs and medicaments taken internally (principal) | CPT/HCPCS: 99214 ==

== ENCOUNTER → 2025-03-07 12:53 | Outpatient (BNVA) | payer MEDICARE, MEDICAID, SELFPAY | PROVIDERS: PCP Nurse Practitioner Family; Visit Provider Dermatology | DX: L27.0 Generalized skin eruption due to drugs and medicaments taken internally (principal); L30.0 Nummular dermatitis | CPT/HCPCS: 99214 ==